=== PATIENT | male | born 1955 | race Caucasian/White ===

== ENCOUNTER → 2024-01-12 | Outpatient (CLI) | payer MEDICARE, MEDICAID, SELFPAY | END | disposition home or self-care (01) | LOC: SWHD 10:19 | PROVIDERS: PCP Family Medicine; Referring Provider Family Medicine; Visit Provider Student in an Organized Health Care Education/Training Program | DX: L97.322 Non-pressure chronic ulcer of left ankle with fat layer exposed (principal); E11.622 Type 2 diabetes mellitus with other skin ulcer; L85.3 Xerosis cutis; L60.5 Yellow nail syndrome; I10 Essential (primary) hypertension; E66.9 Obesity, unspecified; F15.11 Other stimulant abuse, in remission; I89.0 Lymphedema, not elsewhere classified | CPT/HCPCS: 11042; A9270 ==

== ENCOUNTER → 2024-01-19 | Outpatient (CLI) | payer MEDICARE, MEDICAID, SELFPAY | END | disposition home or self-care (01) | LOC: SWHD 09:02 | PROVIDERS: PCP Family Medicine; Referring Provider Family Medicine; Visit Provider Student in an Organized Health Care Education/Training Program | DX: I87.312 Chronic venous hypertension (idiopathic) with ulcer of left lower extremity (principal); L97.322 Non-pressure chronic ulcer of left ankle with fat layer exposed; L60.5 Yellow nail syndrome; I10 Essential (primary) hypertension; E66.9 Obesity, unspecified; F15.11 Other stimulant abuse, in remission; I89.0 Lymphedema, not elsewhere classified | CPT/HCPCS: 11042; A9270 ==

== ENCOUNTER → 2024-01-26 | Outpatient (CLI) | payer MEDICARE, MEDICAID, SELFPAY | END | disposition home or self-care (01) | LOC: SWHD 11:02 | PROVIDERS: PCP Family Medicine; Referring Provider Family Medicine; Visit Provider Student in an Organized Health Care Education/Training Program | DX: I87.312 Chronic venous hypertension (idiopathic) with ulcer of left lower extremity (principal); L97.322 Non-pressure chronic ulcer of left ankle with fat layer exposed; L60.5 Yellow nail syndrome; I10 Essential (primary) hypertension; E66.9 Obesity, unspecified; F15.11 Other stimulant abuse, in remission; I89.0 Lymphedema, not elsewhere classified | CPT/HCPCS: 11042; A9270 ==

== ENCOUNTER → 2024-02-02 | Outpatient (CLI) | payer MEDICARE, MEDICAID, SELFPAY | END | disposition home or self-care (01) | LOC: SWHD 08:10 | PROVIDERS: PCP Family Medicine; Referring Provider Family Medicine; Visit Provider Surgery | DX: I87.312 Chronic venous hypertension (idiopathic) with ulcer of left lower extremity (principal); L97.322 Non-pressure chronic ulcer of left ankle with fat layer exposed; L90.5 Scar conditions and fibrosis of skin; I10 Essential (primary) hypertension; L60.5 Yellow nail syndrome; E66.9 Obesity, unspecified; F15.11 Other stimulant abuse, in remission; I89.0 Lymphedema, not elsewhere classified | CPT/HCPCS: 11042; A9270 ==

== ENCOUNTER → 2024-02-09 | Outpatient (CLI) | payer MEDICARE, MEDICAID, SELFPAY | END | disposition home or self-care (01) | LOC: SWHD 09:32 | PROVIDERS: PCP Family Medicine; Referring Provider Family Medicine; Visit Provider Student in an Organized Health Care Education/Training Program | DX: I87.312 Chronic venous hypertension (idiopathic) with ulcer of left lower extremity (principal); L97.322 Non-pressure chronic ulcer of left ankle with fat layer exposed; L90.5 Scar conditions and fibrosis of skin; L60.5 Yellow nail syndrome; E66.9 Obesity, unspecified; F15.11 Other stimulant abuse, in remission; I89.0 Lymphedema, not elsewhere classified | CPT/HCPCS: 11042; A9270 ==

== ENCOUNTER → 2024-02-16 | Outpatient (CLI) | payer MEDICARE, MEDICAID, SELFPAY | END | disposition home or self-care (01) | LOC: SWHD 09:30 | PROVIDERS: PCP Family Medicine; Referring Provider Family Medicine; Visit Provider Student in an Organized Health Care Education/Training Program | DX: I87.312 Chronic venous hypertension (idiopathic) with ulcer of left lower extremity (principal); L97.322 Non-pressure chronic ulcer of left ankle with fat layer exposed; L90.5 Scar conditions and fibrosis of skin; I10 Essential (primary) hypertension; L60.5 Yellow nail syndrome; E66.9 Obesity, unspecified; F15.11 Other stimulant abuse, in remission; I89.0 Lymphedema, not elsewhere classified | CPT/HCPCS: 11042; A9270 ==

== ENCOUNTER → 2024-02-23 | Outpatient (CLI) | payer MEDICARE, MEDICAID, SELFPAY | END | disposition home or self-care (01) | LOC: SWHD 09:15 | PROVIDERS: PCP Family Medicine; Referring Provider Family Medicine; Visit Provider Student in an Organized Health Care Education/Training Program | DX: I87.312 Chronic venous hypertension (idiopathic) with ulcer of left lower extremity (principal); L97.322 Non-pressure chronic ulcer of left ankle with fat layer exposed; L90.5 Scar conditions and fibrosis of skin; I10 Essential (primary) hypertension; L60.5 Yellow nail syndrome; E66.9 Obesity, unspecified; F15.11 Other stimulant abuse, in remission; I89.0 Lymphedema, not elsewhere classified | CPT/HCPCS: 11042; A9270 ==

== ENCOUNTER → 2024-03-01 | Outpatient (CLI) | payer MEDICARE, MEDICAID, SELFPAY | END | disposition home or self-care (01) | LOC: SWHD 13:25 | PROVIDERS: PCP Family Medicine; Referring Provider Family Medicine; Visit Provider Student in an Organized Health Care Education/Training Program | DX: I87.312 Chronic venous hypertension (idiopathic) with ulcer of left lower extremity (principal); L97.322 Non-pressure chronic ulcer of left ankle with fat layer exposed; L90.5 Scar conditions and fibrosis of skin; I10 Essential (primary) hypertension; L60.5 Yellow nail syndrome; E66.9 Obesity, unspecified; F15.11 Other stimulant abuse, in remission; I89.0 Lymphedema, not elsewhere classified | CPT/HCPCS: 29580 ==

== ENCOUNTER → 2024-03-08 | Outpatient (CLI) | payer MEDICARE, MEDICAID, SELFPAY | END | disposition home or self-care (01) | LOC: SWHD 10:13 | PROVIDERS: PCP Family Medicine; Referring Provider Family Medicine; Visit Provider Surgery | DX: I87.312 Chronic venous hypertension (idiopathic) with ulcer of left lower extremity (principal); L97.322 Non-pressure chronic ulcer of left ankle with fat layer exposed; L90.5 Scar conditions and fibrosis of skin; I10 Essential (primary) hypertension; L60.5 Yellow nail syndrome; E66.9 Obesity, unspecified; F15.11 Other stimulant abuse, in remission; I89.0 Lymphedema, not elsewhere classified | CPT/HCPCS: 11042; A9270 ==

== ENCOUNTER → 2024-03-15 | Outpatient (CLI) | payer MEDICARE, MEDICAID, SELFPAY | END | disposition home or self-care (01) | LOC: SWHD 10:06 | PROVIDERS: PCP Family Medicine; Referring Provider Family Medicine; Visit Provider Student in an Organized Health Care Education/Training Program | DX: I87.312 Chronic venous hypertension (idiopathic) with ulcer of left lower extremity (principal); L97.322 Non-pressure chronic ulcer of left ankle with fat layer exposed; L90.5 Scar conditions and fibrosis of skin; I10 Essential (primary) hypertension; L60.5 Yellow nail syndrome; E66.9 Obesity, unspecified; F15.11 Other stimulant abuse, in remission; I89.0 Lymphedema, not elsewhere classified | CPT/HCPCS: 11042; A9270 ==

== ENCOUNTER → 2024-03-22 | Outpatient (CLI) | payer MEDICARE, MEDICAID, SELFPAY | END | disposition home or self-care (01) | LOC: SWHD 10:10 | PROVIDERS: PCP Family Medicine; Referring Provider Family Medicine; Visit Provider Student in an Organized Health Care Education/Training Program | DX: L97.322 Non-pressure chronic ulcer of left ankle with fat layer exposed (principal); L90.5 Scar conditions and fibrosis of skin; I10 Essential (primary) hypertension; L60.5 Yellow nail syndrome; E66.9 Obesity, unspecified; F15.11 Other stimulant abuse, in remission; I89.0 Lymphedema, not elsewhere classified | CPT/HCPCS: 11042; A9270 ==

== ENCOUNTER → 2024-03-29 | Outpatient (CLI) | payer MEDICARE, MEDICAID, SELFPAY | END | disposition home or self-care (01) | LOC: SWHD 14:15 | PROVIDERS: PCP Family Medicine; Referring Provider Family Medicine; Visit Provider Student in an Organized Health Care Education/Training Program | DX: L97.322 Non-pressure chronic ulcer of left ankle with fat layer exposed (principal); L90.5 Scar conditions and fibrosis of skin; I10 Essential (primary) hypertension; L60.5 Yellow nail syndrome; E66.9 Obesity, unspecified; F15.11 Other stimulant abuse, in remission; I89.0 Lymphedema, not elsewhere classified | CPT/HCPCS: 11042; A9270 ==

== ENCOUNTER → 2024-04-05 | Outpatient (CLI) | payer MEDICARE, MEDICAID, SELFPAY | END | disposition home or self-care (01) | LOC: SWHD 10:16 | PROVIDERS: PCP Family Medicine; Referring Provider Family Medicine; Visit Provider Student in an Organized Health Care Education/Training Program | DX: I87.312 Chronic venous hypertension (idiopathic) with ulcer of left lower extremity (principal); L97.322 Non-pressure chronic ulcer of left ankle with fat layer exposed; I10 Essential (primary) hypertension; L60.5 Yellow nail syndrome; E66.9 Obesity, unspecified; F15.11 Other stimulant abuse, in remission; I89.0 Lymphedema, not elsewhere classified | CPT/HCPCS: 11042; A9270 ==

== ENCOUNTER → 2024-04-12 | Outpatient (CLI) | payer MEDICARE, MEDICAID, SELFPAY | END | disposition home or self-care (01) | LOC: SWHD 08:39 | PROVIDERS: PCP Family Medicine; Referring Provider Family Medicine; Visit Provider Student in an Organized Health Care Education/Training Program | DX: I87.312 Chronic venous hypertension (idiopathic) with ulcer of left lower extremity (principal); L97.322 Non-pressure chronic ulcer of left ankle with fat layer exposed; I10 Essential (primary) hypertension; L60.5 Yellow nail syndrome; E66.9 Obesity, unspecified; F15.11 Other stimulant abuse, in remission; I89.0 Lymphedema, not elsewhere classified | CPT/HCPCS: 11042; A9270 ==

== ENCOUNTER → 2024-04-19 | Outpatient (CLI) | payer MEDICARE, MEDICAID, SELFPAY | END | disposition home or self-care (01) | PROVIDERS: PCP Family Medicine; Referring Provider Family Medicine; Visit Provider Surgery | DX: I87.312 Chronic venous hypertension (idiopathic) with ulcer of left lower extremity (principal); L97.322 Non-pressure chronic ulcer of left ankle with fat layer exposed; I10 Essential (primary) hypertension; L60.5 Yellow nail syndrome; E66.9 Obesity, unspecified | CPT/HCPCS: 11042; A9270 ==

== ENCOUNTER → 2024-04-26 | Outpatient (CLI) | payer MEDICARE, MEDICAID, SELFPAY | END | disposition home or self-care (01) | LOC: SWHD 10:21 | PROVIDERS: PCP Family Medicine; Referring Provider Family Medicine; Visit Provider Student in an Organized Health Care Education/Training Program | DX: I87.312 Chronic venous hypertension (idiopathic) with ulcer of left lower extremity (principal); L97.322 Non-pressure chronic ulcer of left ankle with fat layer exposed; I10 Essential (primary) hypertension; L60.5 Yellow nail syndrome; E66.9 Obesity, unspecified | CPT/HCPCS: 11042; A9270 ==

== ENCOUNTER → 2024-05-03 | Outpatient (CLI) | payer MEDICARE, MEDICAID, SELFPAY | END | disposition home or self-care (01) | PROVIDERS: PCP Family Medicine; Referring Provider Family Medicine; Visit Provider Surgery | DX: I87.312 Chronic venous hypertension (idiopathic) with ulcer of left lower extremity (principal); L97.322 Non-pressure chronic ulcer of left ankle with fat layer exposed; I10 Essential (primary) hypertension; L60.5 Yellow nail syndrome; E66.9 Obesity, unspecified | CPT/HCPCS: 11042; A9270 ==

== ENCOUNTER → 2024-05-10 | Outpatient (CLI) | payer MEDICARE, MEDICAID, SELFPAY | END | disposition home or self-care (01) | LOC: SWHD 09:26 | PROVIDERS: PCP Family Medicine; Referring Provider Family Medicine; Visit Provider Student in an Organized Health Care Education/Training Program | DX: I87.312 Chronic venous hypertension (idiopathic) with ulcer of left lower extremity (principal); L97.322 Non-pressure chronic ulcer of left ankle with fat layer exposed; I10 Essential (primary) hypertension; E66.9 Obesity, unspecified; L90.5 Scar conditions and fibrosis of skin; L85.3 Xerosis cutis; E11.69 Type 2 diabetes mellitus with other specified complication; M54.9 Dorsalgia, unspecified | CPT/HCPCS: 11042; A9270 ==

== ENCOUNTER → 2024-05-17 | Outpatient (CLI) | payer MEDICARE, MEDICAID, SELFPAY | END | disposition home or self-care (01) | LOC: SWHD 10:23 | PROVIDERS: PCP Family Medicine; Referring Provider Family Medicine; Visit Provider Student in an Organized Health Care Education/Training Program | DX: I87.312 Chronic venous hypertension (idiopathic) with ulcer of left lower extremity (principal); L97.322 Non-pressure chronic ulcer of left ankle with fat layer exposed; I10 Essential (primary) hypertension; E66.9 Obesity, unspecified; L90.5 Scar conditions and fibrosis of skin; L85.3 Xerosis cutis; E11.69 Type 2 diabetes mellitus with other specified complication; M54.9 Dorsalgia, unspecified | CPT/HCPCS: 11042; A9270 ==

== ENCOUNTER → 2024-05-24 | Outpatient (CLI) | payer MEDICARE, MEDICAID, SELFPAY | END | disposition home or self-care (01) | LOC: SWHD 12:53 | PROVIDERS: PCP Family Medicine; Referring Provider Family Medicine; Visit Provider Student in an Organized Health Care Education/Training Program | DX: I87.312 Chronic venous hypertension (idiopathic) with ulcer of left lower extremity (principal); L97.322 Non-pressure chronic ulcer of left ankle with fat layer exposed; I10 Essential (primary) hypertension; E66.9 Obesity, unspecified; L90.5 Scar conditions and fibrosis of skin; L85.3 Xerosis cutis; E11.69 Type 2 diabetes mellitus with other specified complication; M54.9 Dorsalgia, unspecified | CPT/HCPCS: 11042; A9270 ==

== ENCOUNTER → 2024-05-31 | Outpatient (CLI) | payer MEDICARE, MEDICAID, SELFPAY | END | disposition home or self-care (01) | LOC: SWHD 12:43 | PROVIDERS: PCP Family Medicine; Referring Provider Family Medicine; Visit Provider Student in an Organized Health Care Education/Training Program | DX: I87.312 Chronic venous hypertension (idiopathic) with ulcer of left lower extremity (principal); L97.322 Non-pressure chronic ulcer of left ankle with fat layer exposed; I10 Essential (primary) hypertension; E66.9 Obesity, unspecified; L90.5 Scar conditions and fibrosis of skin; L85.3 Xerosis cutis; E11.69 Type 2 diabetes mellitus with other specified complication; M54.9 Dorsalgia, unspecified | CPT/HCPCS: 11042; A9270 ==

== ENCOUNTER → 2024-06-07 | Outpatient (CLI) | payer MEDICARE, MEDICAID, SELFPAY | END | disposition home or self-care (01) | LOC: SWHD 10:05 | PROVIDERS: PCP Family Medicine; Referring Provider Family Medicine; Visit Provider Student in an Organized Health Care Education/Training Program | DX: I87.312 Chronic venous hypertension (idiopathic) with ulcer of left lower extremity (principal); L97.322 Non-pressure chronic ulcer of left ankle with fat layer exposed; I10 Essential (primary) hypertension; E66.9 Obesity, unspecified; L90.5 Scar conditions and fibrosis of skin; L85.3 Xerosis cutis; E11.69 Type 2 diabetes mellitus with other specified complication; M54.9 Dorsalgia, unspecified | CPT/HCPCS: 11042; A9270 ==

== ENCOUNTER → 2024-06-21 | Outpatient (CLI) | payer MEDICARE, MEDICAID, SELFPAY | END | disposition home or self-care (01) | LOC: SWHD 09:18 | PROVIDERS: PCP Family Medicine; Referring Provider Family Medicine; Visit Provider Student in an Organized Health Care Education/Training Program | DX: I87.312 Chronic venous hypertension (idiopathic) with ulcer of left lower extremity (principal); L97.322 Non-pressure chronic ulcer of left ankle with fat layer exposed; I10 Essential (primary) hypertension; E66.9 Obesity, unspecified; L90.5 Scar conditions and fibrosis of skin; L85.3 Xerosis cutis; E11.69 Type 2 diabetes mellitus with other specified complication; M54.9 Dorsalgia, unspecified | CPT/HCPCS: 11042; A9270 ==

== ENCOUNTER → 2024-06-28 | Outpatient (CLI) | payer MEDICARE, MEDICAID, SELFPAY | END | disposition home or self-care (01) | LOC: SWHD 10:02 | PROVIDERS: PCP Family Medicine; Referring Provider Family Medicine; Visit Provider Surgery | DX: I87.312 Chronic venous hypertension (idiopathic) with ulcer of left lower extremity (principal); L97.322 Non-pressure chronic ulcer of left ankle with fat layer exposed; L97.529 Non-pressure chronic ulcer of other part of left foot with unspecified severity; I10 Essential (primary) hypertension; E66.9 Obesity, unspecified; L90.5 Scar conditions and fibrosis of skin; L85.3 Xerosis cutis; E11.69 Type 2 diabetes mellitus with other specified complication; M54.9 Dorsalgia, unspecified | CPT/HCPCS: 11042; 97597; A9270 ==

== ENCOUNTER → 2024-07-05 | Outpatient (CLI) | payer MEDICARE, MEDICAID, SELFPAY | END | disposition home or self-care (01) | LOC: SWHD 10:17 | PROVIDERS: PCP Family Medicine; Referring Provider Family Medicine; Visit Provider Student in an Organized Health Care Education/Training Program | DX: I87.312 Chronic venous hypertension (idiopathic) with ulcer of left lower extremity (principal); L97.322 Non-pressure chronic ulcer of left ankle with fat layer exposed; L97.529 Non-pressure chronic ulcer of other part of left foot with unspecified severity; I10 Essential (primary) hypertension; E66.9 Obesity, unspecified; L90.5 Scar conditions and fibrosis of skin; L85.3 Xerosis cutis; E11.69 Type 2 diabetes mellitus with other specified complication; M54.9 Dorsalgia, unspecified | CPT/HCPCS: 97597; 11042; A9270 ==

== ENCOUNTER → 2024-07-12 | Outpatient (CLI) | payer MEDICARE, MEDICAID, SELFPAY | END | disposition home or self-care (01) | LOC: SWHD 10:37 | PROVIDERS: PCP Family Medicine; Referring Provider Family Medicine; Visit Provider Student in an Organized Health Care Education/Training Program | DX: I87.312 Chronic venous hypertension (idiopathic) with ulcer of left lower extremity (principal); L97.322 Non-pressure chronic ulcer of left ankle with fat layer exposed; L97.522 Non-pressure chronic ulcer of other part of left foot with fat layer exposed; I10 Essential (primary) hypertension; L90.5 Scar conditions and fibrosis of skin; L85.3 Xerosis cutis; E11.69 Type 2 diabetes mellitus with other specified complication; M54.9 Dorsalgia, unspecified; E66.9 Obesity, unspecified | CPT/HCPCS: 11042; 17250; A9270 ==

== ENCOUNTER → 2024-07-19 | Outpatient (CLI) | payer MEDICARE, MEDICAID, SELFPAY | END | disposition home or self-care (01) | LOC: SWHD 08:07 | PROVIDERS: PCP Family Medicine; Referring Provider Family Medicine; Visit Provider Student in an Organized Health Care Education/Training Program | DX: I87.312 Chronic venous hypertension (idiopathic) with ulcer of left lower extremity (principal); L97.322 Non-pressure chronic ulcer of left ankle with fat layer exposed; L97.522 Non-pressure chronic ulcer of other part of left foot with fat layer exposed; I10 Essential (primary) hypertension; L90.5 Scar conditions and fibrosis of skin; L85.3 Xerosis cutis; E11.69 Type 2 diabetes mellitus with other specified complication; M54.9 Dorsalgia, unspecified; E66.9 Obesity, unspecified | CPT/HCPCS: 17250; A9270 ==

== ENCOUNTER 2024-07-26 11:06 | Emergency (ER) | payer MEDICARE, MEDICAID, SELFPAY ==
[2024-07-26 11:10] VITALS: BP 149/78; PULSE 71; RESP 19; TEMP 36.8; O2SAT 95
[2024-07-26 11:25] VITALS: PULSE 88; RESP 20; BMI 46.7
--- NOTE | 2024-07-26 11:51 | EKG_ITS ---
[facility] Test Date: 2024-07-26 Pat Name: VIPUL REAL Department: Room: - Gender: Male Information Systems Auditor: : 1955 Requested By: Jensen Carvajal Order Number: [id number] Reading MD: Jensen Carvajal Measurements Intervals [place] Rate: 77 P: [place]: QRS: -80 QRSD: 164 T: 77 QT: 452 QTc: 513 Interpretive Statements ELECTRONIC VENTRICULAR PACEMAKER ABNORMAL RHYTHM ECG Compared to ECG 05/22/2022 09:18:56 Atrial fibrillation no longer present Left-axis deviation no longer present /store/S0/[id number]
--- NOTE | 2024-07-26 11:52 | PD.EDWEAK ---
ED Weakness RME/HPI General Chief complaint: Weakness Stated complaint: HYPOGLYCEMIA Time Seen by Provider: 07/26/24 11:08 Source: patient and EMS Arrival date/time: 07/26/24 11:06 69-year-old male with a history of type 2 diabetes, hyperlipidemia, morbid obesity, presents to the emergency room with a chief complaint of hypoglycemia. Patient went to see his primary care provider for general checkup and states that during his visit he was told his blood sugar was 51 and was brought to the emergency room by ambulance. Mode of arrival: EMS Limitations: no limitations Related Data Home Medications ?Medication ?Instructions ?Recorded ?Confirmed pioglitazone 45 mg tablet (Actos) 45 mg PO DAILY ##0 09/26/09 05/27/22 dexlansoprazole 30 mg 30 mg PO QDAY ##0 10/19/13 05/27/22 capsule,biphase delayed release (Dexilant) alprazolam 1 mg tablet 1 mg PO TID 05/27/22 05/27/22 buspirone 10 mg tablet 10 mg PO TID 05/27/22 05/27/22 flecainide 100 mg tablet 100 mg PO BID 05/27/22 05/27/22 insulin degludec 100 unit/mL See Rx Instructions .Route 05/27/22 05/27/22 subcutaneous solution (Tresiba .COMPLEX PRN Hyperglycemia U-100 Insulin) lovastatin 40 mg tablet 40 mg PO QDAY 05/27/22 05/27/22 metformin 1,000 mg tablet 1,000 mg PO BID 05/27/22 05/27/22 metoprolol succinate 50 mg 50 mg PO BID 05/27/22 05/27/22 tablet,extended release 24 hr triamterene 37.5 1 tab PO BID 05/27/22 05/27/22 mg-hydrochlorothiazide 25 mg tablet warfarin 5 mg tablet 5 mg PO QDAY 05/27/22 05/27/22 Held on 05/27/22. Instructions: Resume on 05/28/22. Previous Rx's ?Medication ?Instructions ?Recorded cephalexin 500 mg tablet 500 mg PO Q6HR #12 tabs 05/27/22 Allergies Allergy/AdvReac Type Severity Reaction Status Date / Time No Known Allergies Allergy Verified 05/27/22 14:54 Review of Systems Review of Systems Systems Reviewed: All systems reviewed, normal except as documented Constitutional Constitutional: Reports system reviewed and no additional complaints, except as documented, Denies fatigue, Denies fever(s), Denies headache(s) and Reports weakness Eyes Eyes: Reports system reviewed and no additional complaints, except as documented, Denies blurry vision and Denies change in vision ENT Ears, Nose, Mouth, and Throat: Reports system reviewed and no additional complaints, except as documented, Denies otalgia, Denies headache(s), Denies nasal congestion, Denies throat swelling and Denies vertigo Cardiovascular Cardiovascular: Reports system reviewed and no additional complaints, except as documented, Denies chest pain, Denies dyspnea and Denies dyspnea on exertion Respiratory Respiratory: Reports system reviewed and no additional complaints, except as documented, Denies chest congestion, Denies cough, Denies dyspnea, Denies dyspnea on exertion and Denies wheezing Gastrointestinal Gastrointestinal: Reports system reviewed and no additional complaints, except as documented, Denies abdominal pain, Denies cramping, Denies nausea and Denies vomiting Genitourinary Genitourinary: Reports system reviewed and no additional complaints, except as documented, Denies dysuria and Denies hematuria Musculoskeletal Musculoskeletal: Reports system reviewed and no additional complaints, except as documented and Denies back pain Integumentary/Breasts Skin/Breast: Reports system reviewed and no additional complaints, except as documented and Denies wounds Neurologic Neurologic: Reports system reviewed and no additional complaints, except as documented, Denies confusion, Denies headache(s), Denies lack of coordination, Denies vertigo and Reports weakness Psychiatric Psychiatric: Reports system reviewed and no additional complaints, except as documented, Denies anxiety, Denies confusion, Denies depression, Denies paranoia, Denies suicidal ideation and Denies tactile hallucinations Endocrine Endocrine: Reports system reviewed and no additional complaints, except as documented and Denies fatigue Hematologic/Lymphatic Hematologic/Lymphatic: Reports system reviewed and no additional complaints, except as documented and Denies lymphadenopathy Allergic/Immunologic Allergic/Immunologic: Reports system reviewed and no additional complaints, except as documented, Denies throat swelling, Denies urticaria and Denies wheezing Past Medical History Past Medical History NEUROLOGIC: Negative Neurological Disorders CARDIAC: Positive Cardiac Disorders, Cardiac Arrhythmia, Atrial Fibrillation, Hypercholesterolemia, Congestive Heart Failure, Cellulitis (LEFT ANKLE ULCER) and Hypertension RESPIRATORY: Negative Chronic Obstructive Pulmonary Disease (COPD) GASTROINTESTINAL: Positive Gall Bladder Disease GENITOURINARY: Negative Renal Disease MUSCULOSKELETAL: Positive Arthritis ENDOCRINE: Positive Diabetes Mellitus Type 2; Negative Diabetes Mellitus Type 1 HEMATOLOGIC: Negative Blood Disorders PSYCHO/SOCIAL: Positive Anxiety OTHER HISTORY: Positive Chicken Pox Family History FAMILY HISTORY: Positive Family Cardiac Disorders (MOTHER) and Family Cancer (FATHER LUNG CA) Surgical History SURGICAL: Positive Pacemaker Social History SMOKING STATUS: Never smoker ED Exam General Limitations: Present no limitations General appearance: Present alert and in no apparent distress Head Head exam: Present atraumatic, normocephalic and normal inspection Eye Eye exam: Present normal appearance, PERRL and EOMI ENT ENT exam: Present normal exam, normal oropharynx and mucous membranes moist Neck Neck exam: Present normal inspection, full ROM and trachea midline Chest Chest inspection: Present normal inspection and symmetric chest wall rise Respiratory Respiratory exam: Present normal lung sounds bilaterally Cardiovascular Cardiovascular exam: Present regular rate, normal rhythm and normal heart sounds Abdominal Exam Abdominal exam: Present soft and normal bowel sounds; Absent distention, tenderness or guarding Extremities Exam Extremities exam: Present normal inspection and full ROM Back Exam Back exam: Present normal inspection and full ROM Neurological Exam Neurological exam: Present alert, oriented X3 and CN II-XII intact Psychiatric Psychiatric exam: Present normal affect and normal mood Skin Skin exam: Present warm, dry, intact and normal color Course Quality Measures none Orders Category Date Time Status EKG (ED ONLY) *Do not use* NOW Care 07/26/24 11:51 Completed In and Out Catheter X1 Care 07/26/24 13:54 Completed Occult Blood,Stool (Nursing) NEEDED Care 07/26/24 15:30 Completed EKG (ED Only) Stat Exams 07/26/24 11:51 Draft B-Type Natriuretic Peptide Stat Lab 07/26/24 12:07 Completed CBC Stat Lab 07/26/24 12:07 Completed Comprehensive Metabolic Panel Stat Lab 07/26/24 12:07 Completed Magnesium Stat Lab 07/26/24 12:07 Completed Partial Thromboplastin Time Stat Lab 07/26/24 12:07 Completed Prothrombin Time with INR Stat Lab 07/26/24 12:07 Completed Troponin I Stat Lab 07/26/24 12:07 Completed Urinalysis Stat Lab 07/26/24 13:51 Completed Vital Signs Vital signs: Vital Signs Temperature 98.2 F 07/26/24 11:10 Pulse Rate 71 07/26/24 11:10 Respiratory Rate 19 07/26/24 11:10 Blood Pressure 149/78 H 07/26/24 11:10 Pulse Oximetry (%) 95 07/26/24 11:10 Oxygen Delivery Method Room Air 07/26/24 11:10 O2 saturation 95% within normal limits Weakness MDM Narrative MDM Narrative:: 69-year-old male with a history of type 2 diabetes, hyperlipidemia, morbid obesity, presents to the emergency room with a chief complaint of hypoglycemia. Patient went to see his primary care provider for general checkup and states that during his visit he was told his blood sugar was 51 and was brought to the emergency room by ambulance. Patient is hemodynamically stable and in no apparent distress Physical examination shows a normal neurological examination. The patient has a soft nontender abdomen clear bilateral lung sounds and states his only complaint was due to a hypoglycemic episode that occurred at his primary care provider's office. Patient states he went in there for routine visit and found that his sugar was low at 51. EMS gave him some glucagon and D10 when the patient arrived to the emergency room sugar was within normal limits. The patient presented immediately complains of patient has no chest pain no palpitations no other complaints. CBC CMP are within normal limits. Patient has an elevated BNP. Patient has a history of congestive heart failure. Patient's hemoglobin was 7.6. No blood tests was completed and there is negative rectal bleeding. Patient was discharged and educated to follow-up with primary care provider in the next 24 to 48 hours and return to the emergency room for any evidence of worsening signs or symptoms Patient data External records reviewed:: [facility] previous records Clinical information provided by:: patient Social determinants that could affect healthcare access:: none Patient has the following chronic illnesses:: Type 2 diabetes, hypertension, hyperlipidemia How is presenting disease/condition affected by chronic disease/condition?: exacerbated by Evaluation data The following diagnostics were reviewed and interpreted by me:: lab results and radiology exam(s) Lab and/or radiology exams considered but not ordered:: Labs and radiology exams considered and ordered Interpretation Summary: N/A Medications / Prescriptions Medications or Prescriptions considered but not ordered:: Medication given Medication administrations:: Medication given Consultations Consultation(s) initiated? (list below): No Diagnosis Weakness Differential Diagnosis: acute myocardial infarction, anemia, hypoglycemia, hypothyroidism, rhabdomyolysis, sepsis and dehydration Most likely diagnosis given after review of the tests above:: Anemia Admission Indicated Admission indicated?: not indicated Admission Request Was there a request for admission?: No Disposition Plan Disposition Plan: Discharge Discharge Attestation Discharge Attestation: The patient and all family members were given an opportunity to ask questions and understood the discharge instructions. Discharge instructions specifically effects, indications for sooner follow up or return to the emergency department, and the expected course of current diagnosis. Patient condition: Stable Discharge Plan Plan Patient Disposition: HOME (Self Care) Discharge Disposition comment: stable Prescriptions/Referrals Prescriptions/Med Rec: No Action pioglitazone [Actos] 45 MG tablet 45 mg PO DAILY Qty: 0 dexlansoprazole [Dexilant] 30 MG capsule,biphase delayed releas 30 mg PO QDAY Qty: 0 warfarin 5 mg Tablet 5 mg PO QDAY flecainide 100 mg Tablet 100 mg PO BID triamterene-hydrochlorothiazid 37.5-25 mg Tablet 1 tab PO BID insulin degludec [Tresiba U-100 Insulin] 100 unit/mL Solution See Rx Instructions .ROUTE .COMPLEX PRN (Reason: Hyperglycemia) Rx Instructions: use as directed alprazolam 1 mg Tablet 1 mg PO TID metoprolol succinate 50 mg Tablet Extended Release 24 Hr 50 mg PO BID metformin 1,000 mg Tablet 1,000 mg PO BID cephalexin 500 mg Tablet 500 mg PO Q6HR Qty: 12 0RF lovastatin 40 mg Tablet 40 mg PO QDAY buspirone 10 mg Tablet 10 mg PO TID Referrals: Dre Harris MD [Primary Care Provider] - In 1 week Problem List Clinical Impression: Hypoglycemia, Anemia Patient/Caregiver Discharge Instructions Education Materials: Anemia, Hypoglycemia (Low Blood Sugar) Additional Instructions: Please follow-up with your primary care provider in the next 24 to 48 hours. For any evidence of worsening signs or symptoms return to the emergency room immediately Print Language: Guamanian Stand Alone Forms: Keren Award Info., Patient Portal Info Letter PA/CALL MANAGER Supervising Physician PA/BREANNA Supervising Physician: Dr Lugo
[2024-07-26 12:22] LABS: Basophils # (Auto) 0.1 Thou/mm3 (0.0-0.2); Basophils % (Auto) 1 % (0-2.5); Eosinophils # (Auto) 0.1 Thou/mm3 (0.0-0.5); Eosinophils % (Auto) 1 % (0-10); Hematocrit 26.2 % (41.0-53.0); Immature Granulocytes % (Auto) 0 % (0-0); Immature Granulocytes Auto 0.01 Thou/mm3 (0.00-0.00); Lymphocytes # (Auto) 0.7 Thou/mm3 (1.0-4.8); Lymphocytes % (Auto) 13 % (10-50); Mean Corpuscular Hemoglobin 22.8 pg (25.0-35.0); Mean Corpuscular Volume 79 fL (80-100); Monocytes # (Auto) 0.5 Thou/mm3 (0.0-0.8); Monocytes % (Auto) 9 % (0-12); Neutrophils % (Auto) 76 % (37-80); Nucleated Red Blood Cell % 0 /100 WBC (0); Platelet Count 265 Thou/mm3 (140-440); RDW Standard Deviation 55.5 fL (35.1-43.9); Red Blood Count 3.33 Miln/mm3 (4.50-5.90); White Blood Count 5.3 Thou/mm3 (3.8-10.6)
[2024-07-26 12:45] LABS: Alanine Aminotransferase 11 U/L (10-49); Albumin/Globulin Ratio 1.8 (1.2-2.2); Alkaline Phosphatase 68 U/L (46-116); Anion Gap 13 (7-16); Aspartate Amino Transferase 19 U/L (0-34); BUN/Creatinine Ratio 27 Ratio (12-20); Bilirubin,Total 0.3 mg/dL (0.3-1.2); Blood Urea Nitrogen 35 mg/dL (9-23); Calcium 8.2 mg/dL (8.3-10.6); Calcium (Corrected) 8.2 mg/dL (8.5-10.1); Carbon Dioxide 23.8 mMol/L (20.0-31.0); Chloride 108 mMol/L (98-107); Creatinine (Component) 1.3 mg/dL (0.6-1.3); Estimated Creatinine Clearance 99.8 mL/min (>60); Globulin 2.2 gm/dL (2.3-3.5); Glucose 98 mg/dL (74-106); Magnesium 1.8 mg/dL (1.6-2.6); Osmolality,Calculated 296 (275-295); Potassium 4.8 mMol/L (3.4-5.1); Sodium 145 mMol/L (136-145); Total Protein 6.2 gm/dL (5.7-8.2); Troponin I < 0.020 ng/mL (0.0-0.045); eGFR 59 See Note
[2024-07-26 12:46] LABS: INR 2.5 (0.9-1.3); Partial Thromboplastin Time 32.7 Seconds (22.0-36.0); Prothrombin Time 25.6 Seconds (9.0-12.2)
[2024-07-26 12:50] LABS: B-Type Natriuretic Peptide 551 pg/mL (0-100)
[2024-07-26 12:51] LABS: Hemoglobin 7.6 g/dL (13.5-16.0)
[2024-07-26 13:02] VITALS: BP 137/83; PULSE 79; RESP 19; TEMP 36.6; O2SAT 97
[2024-07-26 13:54] LABS: Collection Type, Urine Clean Catch
[2024-07-26 13:59] LABS: Bilirubin,Urine Negative (Negative); Blood,Urine 3+ (Negative); Clarity,Urine Clear (Clear/Hazy); Color,Urine Lt-Yellow (Lt Yel-Yel); Glucose, Urine Negative (Negative); Hyaline Casts,Urine < 1 /hpf (0-1); Ketones,Urine Negative (Negative); Leukocyte Esterase,Urine Negative (Negative); Nitrite,Urine Negative (Negative); PH,Urine 5.5 (5.0-7.0); Protein,Urine Trace (Neg - Trace); RBC,Urine 132 /hpf (0-3); Specific Gravity,Urine 1.019 (1.001-1.035); Squamous Epithelial Cell,Urine 1 /hpf (0-5); Urobilinogen,Urine Negative mg/dL (0.0-1.0); WBC,Urine 6 /hpf (0-5)
[2024-07-26 14:31] VITALS: BP 148/92; PULSE 71; RESP 20; TEMP 36.9; O2SAT 96
[2024-07-26 15:53] VITALS: BP 138/88; PULSE 75; RESP 19; TEMP 36.9; O2SAT 97
[2024-07-26 16:29] VITALS: BP 149/88; PULSE 78; RESP 19; O2SAT 96
== END 2024-07-26 16:31 | disposition home or self-care (01) ==
PROVIDERS: Nurse Practitioner Family; Emergency Provider Emergency Medicine; PCP Family Medicine
DX: D64.9 Anemia, unspecified (principal); E11.649 Type 2 diabetes mellitus with hypoglycemia without coma; R94.31 Abnormal electrocardiogram [ECG] [EKG]; I48.91 Unspecified atrial fibrillation; I11.0 Hypertensive heart disease with heart failure; I50.9 Heart failure, unspecified; E78.00 Pure hypercholesterolemia, unspecified; Z95.0 Presence of cardiac pacemaker; Z79.84 Long term (current) use of oral hypoglycemic drugs; Z79.4 Long term (current) use of insulin; Z79.01 Long term (current) use of anticoagulants
CPT/HCPCS: 51701; 36415; 80053; 81001; 83735; 83880; 84484; 85025; 85610; 85730; 93005; 99283

== ENCOUNTER 2024-07-31 08:40 | Inpatient (IN) | payer MEDICARE, MEDICAID, SELFPAY ==
[2024-07-31] VITALS (11 sets, daily range): BP systolic 123–179; BP diastolic 68–90; PULSE 68–91; RESP 16–93; TEMP 36.4–36.9; O2SAT 91–98; BMI 28.1; BMI 46.0
--- NOTE | 2024-07-31 09:42 | EKG_ITS ---
[facility] Test Date: 2024-07-31 Pat Name: VIPUL REAL Department: Room: - Gender: Male Underwriting Specialist: : 1955 Requested By: Eliazar Jefferson Order Number: [id number] Reading MD: Eliazar Jefferson Measurements Intervals [place] Rate: 70 P: [place]: QRS: -84 QRSD: 225 T: 82 QT: 508 QTc: 550 Interpretive Statements ELECTRONIC VENTRICULAR PACEMAKER ABNORMAL RHYTHM ECG Compared to ECG 07/26/2024 11:58:00 No significant changes /store/S0/[id number]/[id number]
--- NOTE | 2024-07-31 09:42 | XR_ITS ---
Examination: AP chest single view Technique one AP portable semiupright chest single view Date and time: July 31, 2024 0957 hrs. Comparison May 27, 2022 Indications: Coughing shortness of breath 3 days. Findings: Mild to moderate CHF Moderate enlargement cardiac contour. Prominent vascular congestion with perihilar basilar edema Consider superimposed pneumonia left base Cardiac leads stable position Possible pneumonia left base Impression: Mild to moderate CHF Suspicious for superimposed pneumonia left base
[2024-07-31 10:14] LABS: Collection Type, Urine Clean Catch; Squamous Epithelial Cell,Urine 0 /hpf (0-5)
[2024-07-31] MEDS: SODIUM CHLORIDE 0.9% 1000 ML 1,000 ML 100 ML IV (10:18)
[2024-07-31 10:26] LABS: Bacteria,Urine Rare; Bilirubin,Urine Negative (Negative); Blood,Urine 2+ (Negative); Clarity,Urine Turbid (Clear/Hazy); Color,Urine Lt-Yellow (Lt Yel-Yel); Glucose, Urine Negative (Negative); Hyaline Casts,Urine < 1 /hpf (0-1); Ketones,Urine Negative (Negative); Leukocyte Esterase,Urine Positive (Negative); Nitrite,Urine Positive (Negative); Protein,Urine 1+ (Neg - Trace); RBC,Urine 87 /hpf (0-3); Specific Gravity,Urine 1.015 (1.001-1.035); Triple Phosphate Crystal,Urine 1+; Urobilinogen,Urine Negative mg/dL (0.0-1.0); WBC,Urine 116 /hpf (0-5)
[2024-07-31 10:27] LABS: Basophils % (Auto) 0 % (0-2.5); Eosinophils # (Auto) 0.1 Thou/mm3 (0.0-0.5); Eosinophils % (Auto) 1 % (0-10); Hematocrit 26.9 % (41.0-53.0); Immature Granulocytes % (Auto) 0 % (0-0); Immature Granulocytes Auto 0.02 Thou/mm3 (0.00-0.00); Lymphocytes # (Auto) 1.1 Thou/mm3 (1.0-4.8); Lymphocytes % (Auto) 16 % (10-50); Mean Corpuscular HGB Conc 30.1 g/dl (31.0-37.0); Mean Corpuscular Hemoglobin 22.5 pg (25.0-35.0); Mean Corpuscular Volume 75 fL (80-100); Monocytes # (Auto) 0.8 Thou/mm3 (0.0-0.8); Monocytes % (Auto) 13 % (0-12); Neutrophils # (Auto) 4.7 Thou/mm3 (1.8-7.7); Neutrophils % (Auto) 70 % (37-80); Nucleated Red Blood Cell % 0 /100 WBC (0); Platelet Count 305 Thou/mm3 (140-440); RDW Standard Deviation 51.8 fL (35.1-43.9); White Blood Count 6.7 Thou/mm3 (3.8-10.6)
[2024-07-31 10:28] LABS: Hemoglobin 8.1 g/dL (13.5-16.0)
--- NOTE | 2024-07-31 10:47 | PD.EDWEAK ---
ED Weakness RME/HPI General Chief complaint: Weakness Stated complaint: WEAKNESS Time Seen by Provider: 07/31/24 09:24 Arrival date/time: 07/31/24 08:40 Limitations: no limitations RME / HPI RME / HPI Narrative: 69 year old male with history of CHF, AFib s/p pacemaker placement, hypertension, diabetes, hyperlipidemia presents to the ED BIBA from home for evaluation of weakness today. He was seen here 4 days ago for similar symptoms and was noted to be hypoglycemic at that time. He was discharged and followed up with his PCP. Today, while sitting in his kitchen, the patient felt too weak to stand and remained seated for a period of time. His sister, who is present at the bedside, expresses concern, as he lives alone and she is only able to assist him during the day. Patient denies any fevers, chills, chest pain, cough, shortness of breath, abdominal pain, nausea, vomiting, diarrhea, or urinary symptoms. Related Data Home Medications ?Medication ?Instructions ?Recorded ?Confirmed pioglitazone 45 mg tablet (Actos) 45 mg PO DAILY ##0 09/26/09 05/27/22 dexlansoprazole 30 mg 30 mg PO QDAY ##0 10/19/13 05/27/22 capsule,biphase delayed release (Dexilant) alprazolam 1 mg tablet 1 mg PO TID 05/27/22 07/31/24 buspirone 10 mg tablet 10 mg PO TID 05/27/22 07/31/24 flecainide 100 mg tablet 100 mg PO BID 05/27/22 07/31/24 insulin degludec 100 unit/mL See Rx Instructions .Route 05/27/22 07/31/24 subcutaneous solution (Tresiba .COMPLEX PRN Hyperglycemia U-100 Insulin) lovastatin 40 mg tablet 40 mg PO QDAY 05/27/22 07/31/24 metformin 1,000 mg tablet 1,000 mg PO BID 05/27/22 05/27/22 metoprolol succinate 50 mg 50 mg PO BID 05/27/22 07/31/24 tablet,extended release 24 hr triamterene 37.5 1 tab PO BID 05/27/22 05/27/22 mg-hydrochlorothiazide 25 mg tablet warfarin 5 mg tablet 5 mg PO QDAY 05/27/22 07/31/24 Held on 05/27/22. Instructions: Resume on 05/28/22. Previous Rx's ?Medication ?Instructions ?Recorded cephalexin 500 mg tablet 500 mg PO Q6HR #12 tabs 05/27/22 Allergies Allergy/AdvReac Type Severity Reaction Status Date / Time No Known Allergies Allergy Verified 05/27/22 14:54 Review of Systems Review of Systems Systems Reviewed: All systems reviewed, normal except as documented Past Medical History Past Medical History CARDIAC: Positive Cardiac Disorders, Cardiac Arrhythmia, Atrial Fibrillation, Hypercholesterolemia, Congestive Heart Failure, Cellulitis and Hypertension GASTROINTESTINAL: Positive Gall Bladder Disease MUSCULOSKELETAL: Positive Arthritis ENDOCRINE: Positive Diabetes Mellitus Type 2 PSYCHO/SOCIAL: Positive Anxiety OTHER HISTORY: Positive Chicken Pox Family History FAMILY HISTORY: Positive Family Cardiac Disorders and Family Cancer Surgical History SURGICAL: Positive Pacemaker Social History SMOKING STATUS: Never smoker ED Exam General Limitations: Present no limitations General appearance: Present alert, in no apparent distress, obese and other (Pale ) Head Head exam: Present atraumatic, normocephalic and normal inspection Eye Eye exam: Present normal appearance, PERRL and EOMI ENT ENT exam: Present normal exam, normal oropharynx and mucous membranes moist Neck Neck exam: Present normal inspection, full ROM and trachea midline Chest Chest inspection: Present normal inspection and symmetric chest wall rise Respiratory Respiratory exam: Present normal lung sounds bilaterally Cardiovascular Cardiovascular exam: Present regular rate, normal rhythm and other (distant heart sounds ) Abdominal Exam Abdominal exam: Present soft, normal bowel sounds and other (obese) Extremities Exam Extremities exam: Present full ROM and other (wearing stockings on the left for edema, 2+ pitting edema) Back Exam Back exam: Present normal inspection and full ROM Neurological Exam Neurological exam: Present alert, oriented X3 and CN II-XII intact Psychiatric Psychiatric exam: Present normal affect and normal mood Skin Skin exam: Present warm, dry, intact and other (Pale, there is a lot of chronic edema of the belly with mild erythema due to chronic edema) Course Quality Measures none Orders Category Date Time Status COVID-19 Screening Questionnaire NOW Care 07/31/24 12:21 Active Industrial Pipefitter Journeyman NOW Care 07/31/24 09:42 Active Continuous Pulse Oximetry NOW Care 07/31/24 09:42 Completed Decision to Admit X1 Care 07/31/24 12:20 Completed EKG (ED ONLY) *Do not use* NOW Care 07/31/24 09:42 Completed Insert IV NOW Care 07/31/24 09:42 Active Diabetic [Diet Carbohydrate Consistent] Diet 07/31/24 Lunch Active EKG (ED Only) Stat Exams 07/31/24 09:42 Draft XR chest 1V portable Stat Exams 07/31/24 09:42 Completed BNP [B-Type Natriuretic Peptide] Stat Lab 07/31/24 10:14 Completed CBC Stat Lab 07/31/24 10:14 Completed Comprehensive Metabolic Panel Stat Lab 07/31/24 10:14 Completed Partial Thromboplastin Time Stat Lab 07/31/24 10:14 Completed Prothrombin Time with INR Stat Lab 07/31/24 10:14 Completed Troponin I Stat Lab 07/31/24 10:14 Completed Urinalysis Stat Lab 07/31/24 10:02 Completed Doxycycline Inj [Vibramycin Inj] 100 mg Med 07/31/24 11:58 Discontinued Sodium Chloride 0.9% (Pop) [NS 0.9% mini bag] 100 ml IV X1 Furosemide Inj [Lasix Inj] Med 07/31/24 11:58 Discontinued 40 mg IVP X1 ONE Phytonadione Inj [Vitamin K Inj] Med 07/31/24 12:21 Discontinued 5 mg SC X1 ONE Sodium Chloride 0.9% 1000 ml [Ns] 1,000 ml Med 07/31/24 09:41 Active IV 100 mls/hr cefTRIAXone [Rocephin] 2 gm Med 07/31/24 11:55 Discontinued SODIUM CHLORIDE 0.9% (Popper) [Ns 0.9% (P)] 50 ml IV X1 Vital Signs Vital signs: Vital Signs Temperature 98.1 F 07/31/24 08:59 Pulse Rate 87 07/31/24 08:59 Respiratory Rate 18 07/31/24 08:59 Blood Pressure 132/79 H 07/31/24 08:59 Pulse Oximetry (%) 97 07/31/24 08:59 Oxygen Delivery Method Room Air 07/31/24 08:59 Pulse ox is 97% on room air which is adequate. Weakness MDM Narrative MDM Narrative:: Bela Childers am scribing for and in the presence of Dr. Diaz. Patient data External records reviewed:: [facility] previous records (I reviewed ED visit on 07/26/2024 ) and EMS form Clinical information provided by:: patient, EMS and family (sister adds to hpi ) Social determinants that could affect healthcare access:: none Patient has the following chronic illnesses:: CHF, AFib s/p pacemaker placement, hypertension, diabetes, hyperlipidemia How is presenting disease/condition affected by chronic disease/condition?: exacerbated by Evaluation data The following diagnostics were reviewed and interpreted by me:: lab results, radiology exam(s) and EKG tracing(s) (07/31/2024 @ 10:04 AM. Ventricular pacemaker, rate 70, QRS 225ms, QT/QTc 508/529 ms. ) Lab and/or radiology exams considered but not ordered:: None Interpretation Summary: Ordering Physician: Eliazar Diaz MD Date of Service: 07/31/24 Procedure(s): XR chest 1V portable Accession Number(s): [id number] cc: Eliazar Diaz MD; Bon Zaragoza MD~ Examination: AP chest single view Technique one AP portable semiupright chest single view Date and time: July 31, 2024 0957 hrs. Comparison May 27, 2022 Indications: Coughing shortness of breath 3 days. Findings: Mild to moderate CHF Moderate enlargement cardiac contour. Prominent vascular congestion with perihilar basilar edema Consider superimposed pneumonia left base Cardiac leads stable position Possible pneumonia left base Impression: Mild to moderate CHF Suspicious for superimposed pneumonia left base Dictated By: Bon Zaragoza MD Signed By: <Electronically signed by Bon Zaragoza MD in OV>07/31/24 1121 Medications / Prescriptions Medications or Prescriptions considered but not ordered:: None Medication administrations:: Medication Administration History Acetaminophen (Acetaminophen 325 Mg Tablet) 650 mg PO Q6H PRN PRN Reason: Fever >100.3 or pain Stop: 08/30/24 14:46 Alprazolam (Alprazolam 0.25 Mg Tablet) 0.5 mg PO BID [facility]AR Stop: 08/05/24 20:59 Atorvastatin Calcium (Atorvastatin Calcium 20 Mg Tablet) 20 mg PO HS SCAR Stop: 08/30/24 20:59 Buspirone HCl (Buspirone Hcl 5 Mg Tablet) 10 mg PO TID SCAR Stop: 08/30/24 21:59 Dextrose (Dextrose 50%-Water Inj 50 Ml Syringe) 25 ml IV Q15MIN PRN PRN Reason: BG 50-70 responsive npo pt Stop: 08/30/24 14:49 Dextrose (Dextrose 50%-Water Inj 50 Ml Syringe) 50 ml IV Q15MIN PRN PRN Reason: BG <50 OR BG <70 & pt unresponsive Stop: 08/30/24 14:49 Flecainide Acetate (Flecainide Acet 50 Mg Tablet) 100 mg PO BID [facility] Stop: 08/30/24 20:59 Glucagon (Glucagon Inj 1 Mg Vial) 1 mg IM Q15MIN PRN PRN Reason: BG <70, and no IV access Sodium Chloride (Ns) 1,000 mls @ 100 mls/hr IV .Q10H ONE Stop: 07/31/24 19:40 Last Admin: 07/31/24 10:18 Dose: 100 mls/hr Documented By: LESLIE Ceftriaxone Sodium/Dextrose (Rocephin/D5w 1gm Iv Premix) 1 gm in 50 mls @ 100 mls/hr IV QDAY [facility] Stop: 08/08/24 08:59 Insulin Human Lispro (Insulin Lispro (Admelog) 1 Unit/0.01 Ml Unit) 0 unit SC [facility]; Protocol Stop: 08/30/24 16:59 Metoprolol Succinate (Metoprolol Succinate Xl 25 Mg Tabcr) 50 mg PO BID [facility] Stop: 08/30/24 20:59 Ondansetron HCl (Ondansetron Inj 2 Mg/Ml Inj 2 Ml) 4 mg IVP Q6H PRN; Protocol PRN Reason: NAUSEA OR VOMITING Stop: 08/30/24 14:46 Pantoprazole Sodium (Pantoprazole Inj 40 Mg Vial) 40 mg IVP QDAY [facility] Stop: 08/30/24 15:59 Pharmacy Consult (Pharmacy To Dose Warfarin) 1 each PO QDAY PRN PRN Reason: PROTOCOL Stop: 08/31/24 08:59 Discontinued Medications Furosemide (Furosemide Inj 10 Mg/Ml 4ml Vial) 40 mg IVP X1 ONE Stop: 07/31/24 11:59 Last Admin: 07/31/24 12:36 Dose: 40 mg Documented By: LESLIE Hydrochlorothiazide (Hydrochlorothiazide 12.5 Mg Capsule) 25 mg PO BIDD [facility] Stop: 08/30/24 17:59 Ceftriaxone Sodium 2 gm/ (Sodium Chloride) 50 mls @ 100 mls/hr IV X1 ONE Stop: 07/31/24 12:24 Last Infusion: 07/31/24 13:30 Dose: Infused Documented By: Admin: 07/31/24 12:35 Dose: 100 mls/hr Documented By: LESLIE Doxycycline Hyclate 100 mg/ (Sodium Chloride) 100 mls @ 100 mls/hr IV X1 ONE Stop: 07/31/24 12:57 Last Infusion: 07/31/24 14:43 Dose: Infused Documented By: Admin: 07/31/24 13:37 Dose: 100 mls/hr Documented By: LESLIE Phytonadione (Phytonadione Inj 10 Mg/Ml Amp) 5 mg SC X1 ONE Stop: 07/31/24 12:22 Last Admin: 07/31/24 12:36 Dose: 5 mg Documented By: LESLIE See above Consultations Consultation(s) initiated? (list below): Yes Consultation #1 (Physician, Specialty, Details): I spoke with resident Dr. Rizzo working with Dr. Costa. Discussed patients PMHx, HPI, ED course, exam findings, labs, and radiology results. The hospitalist agree to accept the patient for admission. Diagnosis Weakness Differential Diagnosis: anemia, hypothyroidism, sepsis and dehydration Most likely diagnosis given after review of the tests above:: Anemia Prolonged INR UTI CHF Pneumonia Admission Indicated Admission indicated?: indicated Admission Request Was there a request for admission?: Yes Admission Attestation Admission request attestation: Discussed case with [] from Hospitalist service regarding admission. Discussed patients ED course, exam findings, labs, and radiology results. The Hospitalist [agrees,declines] to accept the patient for admission. Disposition Plan Disposition Plan: Admit Discharge Plan Plan Patient Disposition: Admit Acute Care w/in Hospital Problem List Clinical Impression: Anemia, Prolonged INR, Acute UTI, CHF (congestive heart failure), Pneumonia
[2024-07-31 10:53] LABS: Alanine Aminotransferase 28 U/L (10-49); Albumin, Serum 4.2 gm/dL (3.4-4.8); Albumin/Globulin Ratio 1.8 (1.2-2.2); Alkaline Phosphatase 78 U/L (46-116); Anion Gap 12 (7-16); BUN/Creatinine Ratio 25 Ratio (12-20); Bilirubin,Total 0.7 mg/dL (0.3-1.2); Blood Urea Nitrogen 33 mg/dL (9-23); Calcium 8.8 mg/dL (8.3-10.6); Calcium (Corrected) 8.8 mg/dL (8.5-10.1); Carbon Dioxide 24.5 mMol/L (20.0-31.0); Chloride 104 mMol/L (98-107); Creatinine (Component) 1.3 mg/dL (0.6-1.3); Estimated Creatinine Clearance 77.1 mL/min (>60); Globulin 2.4 gm/dL (2.3-3.5); Glucose 113 mg/dL (74-106); Osmolality,Calculated 287 (275-295); Potassium 4.4 mMol/L (3.4-5.1); Sodium 140 mMol/L (136-145); Total Protein 6.6 gm/dL (5.7-8.2); Troponin I < 0.020 ng/mL (0.0-0.045); eGFR 59 See Note
[2024-07-31 10:58] LABS: Partial Thromboplastin Time 38.3 Seconds (22.0-36.0)
[2024-07-31 11:16] LABS: Prothrombin Time 39.3 Seconds (9.0-12.2)
[2024-07-31] MEDS: cefTRIAXone 2 GM in SODIUM CHLORIDE 0.9% (Popper) 50 ML IV (12:35)
[2024-07-31] MEDS: FUROSEMIDE INJ 10 MG/ML 4ML VIAL 40 MG IVP (12:36)
[2024-07-31] MEDS: PHYTONADIONE INJ 10 MG/ML AMP 5 MG SC (12:36)
[2024-07-31 12:53] LABS: B-Type Natriuretic Peptide 841 pg/mL (0-100)
[2024-07-31] MEDS: DOXYCYCLINE INJ 100 MG in SODIUM CHLORIDE 0.9% (POP) 100 ML IV (13:37)
--- NOTE | 2024-07-31 14:53 | PD.RESHP ---
Documentation for date of: 07/31/24 [facility] History of Present Illness Chief complaint: general weakness History of present illness: The patient is a 69-year-old male with a previous medical history of hypertension, HLD, type 2 diabetes, A-fib on warfarin, status post pacemaker placement, chronic venous insufficiency with chronic lower extremity wounds, morbid obesity who was brought to the ED on 07/31/2024 due to the general weakness and 2 episodes of ground-level fall. Patient started to feel weak with diarrhea, abdominal pain, burning with urination on Thursday last week. Denies fever, chills, cough, shortness of breath, chest pain. He also started to become weak and he fell twice due to legs giving out . He and his sister denies loss of consciousness or trauma to the head. He denies bloody stools, nausea vomiting or blood. In the ED: He was hemodynamically stable, afebrile, saturating well on room air. Labs were significant for WBC count 6.7, hemoglobin 8.1, platelets 325. INR was 4.0. UA was positive for signs of UTI. Chest x-ray showed mild to moderate CHF. EKG showed ventricular pacing. FOBT was positive. Patient is admitted for complicated UTI and suspected GI bleeding workup and management. Social history: Able to ambulate independently on the baseline. Does not smoke cigarettes and does not drink alcohol. Medications: Flecainide, BuSpar, alprazolam, lovastatin, triamterene/hydrochlorothiazide, pantoprazole, metoprolol, Tresiba. Allergies: Denies Surgeries: Cholecystectomy, left knee surgery after trauma. Review of Systems Review of Systems Systems Reviewed: All systems reviewed, normal except as documented Past Medical History Past Medical History NEUROLOGIC: Negative Neurological Disorders CARDIAC: Positive Cardiac Disorders, Cardiac Arrhythmia, Atrial Fibrillation, Hypercholesterolemia, Congestive Heart Failure, Cellulitis (LEFT ANKLE ULCER) and Hypertension RESPIRATORY: Negative Chronic Obstructive Pulmonary Disease (COPD) GASTROINTESTINAL: Positive Gall Bladder Disease GENITOURINARY: Negative Renal Disease MUSCULOSKELETAL: Positive Arthritis ENDOCRINE: Positive Diabetes Mellitus Type 2; Negative Diabetes Mellitus Type 1 HEMATOLOGIC: Negative Blood Disorders PSYCHO/SOCIAL: Positive Anxiety OTHER HISTORY: Positive Chicken Pox Family History FAMILY HISTORY: Positive Family Cardiac Disorders (MOTHER) and Family Cancer (FATHER LUNG CA) Surgical History SURGICAL: Positive Pacemaker Social History SMOKING STATUS: Never smoker Exam Vital Signs Temp Pulse Resp BP Pulse Ox O2 Del Method 98.1 F 78 18 133/81 H 97 Room Air 07/31/24 08:59 07/31/24 12:36 07/31/24 08:59 07/31/24 12:36 07/31/24 08:59 07/31/24 08:59 Narrative Exam Gen: Well-developed and well-nourished. HEENT: NCAT, PERRLA, EOMI, MMM, anicteric conjunctivae. CVS: normal S1 and S2. RRR. No M/R/G. Resp: CTA B/L. No rhonchi, rales, crackles or wheezing. Abd: soft, diffusely tender, distended (due to habitus). BS+ in all 4 quadrants. MSK: Bilateral chronic venous stasis dermatitis. Left lower extremity wound. Neuro: CN II-XII grossly intact. Strength 5/5 in BUE & BLE. Alert and oriented x3. Psych: appropriate mood and affect. Results: Labs 08/01/24 04:45 08/01/24 04:45 Labs: Short CBC 07/31/24 Range/Units 10:14 WBC 6.7 (3.8-10.6) Thou/mm3 Hgb 8.1 L (13.5-16.0) g/dL Hct 26.9 L (41.0-53.0) % Plt Count 305 D (140-440) Thou/mm3 BMP 07/31/24 10:14 Sodium 140 Potassium 4.4 Chloride 104 Carbon Dioxide 24.5 BUN 33 H Creatinine 1.3 Glucose 113 H Calcium 8.8 Cardiac Enzymes 07/31/24 Range/Units 10:14 Troponin I < 0.020 (0.0-0.045) ng/mL Liver Function 07/31/24 Range/Units 10:14 Total Bilirubin 0.7 (0.3-1.2) mg/dL ALT 28 (10-49) U/L Alkaline Phosphatase 78 (46-116) U/L Albumin 4.2 (3.4-4.8) gm/dL Urine 07/31/24 Range/Units 10:02 Urine Color Lt-Yellow (Lt Yel-Yel) Urine Clarity Turbid A (Clear/Hazy) Urine pH 8.0 H (5.0-7.0) Ur Specific [place] 1.015 (1.001-1.035) Urine Protein 1+ A (Neg - Trace) Urine Glucose (UA) Negative (Negative) Quality Measures Quality Measures VTE prophylaxis Advance care planning discussed with:: patient Medications Home Medications and Allergies Home Medications ?Medication ?Instructions ?Recorded ?Confirmed ?Type dexlansoprazole 30 mg 30 mg PO QDAY ##0 10/19/13 05/27/22 History capsule,biphase delayed release (Dexilant) alprazolam 1 mg tablet 1 mg PO TID 05/27/22 07/31/24 History buspirone 10 mg tablet 10 mg PO TID 05/27/22 07/31/24 History flecainide 100 mg tablet 100 mg PO BID 05/27/22 07/31/24 History insulin degludec 100 unit/mL 15 unit subcut Q24H Hyperglycemia 05/27/22 08/01/24 History subcutaneous solution (Tresiba U-100 Insulin) lovastatin 40 mg tablet 40 mg PO QDAY 05/27/22 07/31/24 History metoprolol succinate 50 mg 50 mg PO BID 05/27/22 07/31/24 History tablet,extended release 24 hr triamterene 37.5 1 tab PO BID 05/27/22 08/01/24 History mg-hydrochlorothiazide 25 mg tablet warfarin 5 mg tablet 5 mg PO QDAY 05/27/22 08/01/24 History ferrous sulfate 325 mg (65 mg mg 08/01/24 History iron) tablet (FeroSul) pantoprazole 40 mg tablet,delayed 40 mg PO DAILY 08/01/24 08/01/24 History release sulfamethoxazole 800 tab 08/01/24 History mg-trimethoprim 160 mg tablet Allergies Allergy/AdvReac Type Severity Reaction Status Date / Time No Known Allergies Allergy Verified 05/27/22 14:54 Visit Medications Acetaminophen (Acetaminophen 325 Mg Tablet) 650 mg PO Q6H PRN PRN Reason: Fever >100.3 or pain Stop: 08/30/24 14:46 Dextrose (Dextrose 50%-Water Inj 50 Ml Syringe) 25 ml IV Q15MIN PRN PRN Reason: BG 50-70 responsive npo pt Stop: 08/30/24 14:49 Dextrose (Dextrose 50%-Water Inj 50 Ml Syringe) 50 ml IV Q15MIN PRN PRN Reason: BG <50 OR BG <70 & pt unresponsive Stop: 08/30/24 14:49 Glucagon (Glucagon Inj 1 Mg Vial) 1 mg IM Q15MIN PRN PRN Reason: BG <70, and no IV access Sodium Chloride (Ns) 1,000 mls @ 100 mls/hr IV .Q10H ONE Stop: 07/31/24 19:40 Last Admin: 07/31/24 10:18 Dose: 100 mls/hr Ceftriaxone Sodium/Dextrose (Rocephin/D5w 1gm Iv Premix) 1 gm in 50 mls @ 100 mls/hr IV QDAY [facility] Stop: 08/08/24 08:59 Insulin Human Lispro (Insulin Lispro (Admelog) 1 Unit/0.01 Ml Unit) 0 unit SC [facility]; Protocol Stop: 08/30/24 16:59 Ondansetron HCl (Ondansetron Inj 2 Mg/Ml Inj 2 Ml) 4 mg IVP Q6H PRN; Protocol PRN Reason: NAUSEA OR VOMITING Stop: 08/30/24 14:46 Pharmacy Consult (Pharmacy To Dose Warfarin) 1 each PO QDAY PRN PRN Reason: PROTOCOL Stop: 08/31/24 08:59 Discontinued Medications Furosemide (Furosemide Inj 10 Mg/Ml 4ml Vial) 40 mg IVP X1 ONE Stop: 07/31/24 11:59 Last Admin: 07/31/24 12:36 Dose: 40 mg Ceftriaxone Sodium 2 gm/ (Sodium Chloride) 50 mls @ 100 mls/hr IV X1 ONE Stop: 07/31/24 12:24 Last Infusion: 07/31/24 13:30 Dose: Infused Doxycycline Hyclate 100 mg/ (Sodium Chloride) 100 mls @ 100 mls/hr IV X1 ONE Stop: 07/31/24 12:57 Last Infusion: 07/31/24 14:43 Dose: Infused Phytonadione (Phytonadione Inj 10 Mg/Ml Amp) 5 mg SC X1 ONE Stop: 07/31/24 12:22 Last Admin: 07/31/24 12:36 Dose: 5 mg Assessment & Plan Plan The patient is a 69-year-old male with a previous medical history of hypertension, type 2 diabetes, A-fib on warfarin, status post pacemaker placement, chronic venous insufficiency with chronic lower extremity wounds who was brought to the ED on 07/31/2024 due to the general weakness and 2 episodes of ground-level fall. #General weakness #Ground level falls #Complicated UTI Patient has urinary urgency that started since Thursday. UA showed signs of UTI Plan: - ceftriaxone 1 g qday 07/31/24-current - urine culture #Chronic anemia #Suspected GI bleed #Diarrhea FOBT was positive. Patient denies hematemesis, melena, hematochezia. Plan: - Consulted GI - Pantoprazole 40 mg qday - Banatrol packet - warfarin on hold for now - transfuse of Hgb<7 - iron panel #Type 2 DM Plan: - ISS - glargine 15U - Hypoglycemia protocol #Afib of warfarine #Hypertension #Hyperlipidemia Plan: - resumed home flecainide - resumed home metoprolol - held home hydrochlorothiazide - atorvastatin 20 mg qday - warfarin on hold for now #Anxiety Plan: - resumed home buspar - resumed home xanax in lower dose Health maintenance: FEN: carbohydrate consistent DVT prophylaxis: lovenox 40 mg qday GI prophylaxis: pantoprazole 40 mg qday Dispo: medtele CODE STATUS: Full code Plan of care discussed with attending Dr. Costa. Alcira Rizzo MD, PGY 1. Attending Provider Attestation/Addendum I, Diana Costa DO, attest that I was physically present for the sidhu portions of the service and evaluated the patient with the resident and I reviewed and discussed the case with the resident and agree with the resident's findings and plans of care as documented above Patient is a 69 year old male with Pmhx of HTN, HLD, T2DM, afib on warfarin, s/p ppm, chronic venous insufficiency and wounds, BMI of 46 who presented to the ED with worsening generalized weakness for the past week. He has had dysuria and had a ground level fall this morning. He denies shortness of breath or chest pain, but admits to diarrhea when he eats. Patient states he has eaten less due to diarrhea, but denies any recent antibiotics. He states that he has started taking iron pills recently due to anemia. He denies noting any blood in stool or dark stool. In the ED, patient was found to have supratherapeutic INR of 4.0. CXR showed mild to moderate CHF and left basilar pneumonia. However, patient appears comfortable on room air. B/l LE appear to have 1+ pitting edema in b/l LE and scattered wounds of different stages. UA appears to have some bacteria. Patient states that he has been having accidents due to frequent urination and diarrhea, as well as generalized weakness. Suspect possible acute blood loss anemia resulting in generalized weakness in the setting of supratherapeutic INR. Patient received kcentra in the ED. Guaiac was done and was positive. Will admit patient to telemetry for further workup and medical management for anemia and UTI. Will place singh catheter due to frequent urination. Will order iron panel and hold warfarin.
[2024-07-31] MEDS: INSULIN LISPRO (AdmeLOG) 1 UNIT/0.01 ML UNIT SC (17:16)
[2024-07-31 17:41] LABS: Ferritin 31 ng/mL (10.5-307.3)
[2024-07-31] MEDS: PANTOPRAZOLE INJ 40 MG VIAL IVP (17:42)
--- NOTE | 2024-07-31 18:24 | PC.NURSE ---
bleeding with small clots noted on singh catheter tubing, Dr. Hawkins made aware. No new orders.
--- NOTE | 2024-07-31 19:28 | PC.NURSE ---
Sister Stephanie took medications home. Patient will call to bring meds tomorrow.
--- NOTE | 2024-07-31 20:59 | PD.IMCONS ---
HPI Data of Consult Requesting Physician: Diana Costa DO Primary Care Provider: Dre Harris MD Consult Narrative Reason for consult: anemia of blood loss FOBT positive History of present illness: 69-year-old male brought in by the family because of weakness and ground-level falls at least 2 of them without any loss of consciousness I am consulted because of FOBT positive and the presenting hemoglobin hematocrit 8.1 and 26.9 Patient is on warfarin for atrial fibrillation and pro time INR was 4.0 with a BUN/creatinine of 35 and 1.2 No history of any hematemesis melena or bright red bleeding per rectum or hematochezia Patient has a very complicated past medical history of hypertension hyperlipidemia atrial fibrillation on warfarin pacemaker placement chronic lower extremity wounds with edema and congestive heart failure with a BNP presenting at 551 going up to 841 and the chest x-ray showing moderate pulmonary congestion with a right basal pneumonia cc:: cc: Diana Costa DO Review of Systems Review of Systems Systems Reviewed: All systems reviewed, normal except as documented Past Medical History Surgical History OTHER SURGICAL HX: As in the history of present illness Meds Home Medications and Allergies Home Medications ?Medication ?Instructions ?Recorded ?Confirmed ?Type pioglitazone 45 mg tablet (Actos) 45 mg PO DAILY ##0 09/26/09 05/27/22 History dexlansoprazole 30 mg 30 mg PO QDAY ##0 10/19/13 05/27/22 History capsule,biphase delayed release (Dexilant) alprazolam 1 mg tablet 1 mg PO TID 05/27/22 07/31/24 History buspirone 10 mg tablet 10 mg PO TID 05/27/22 07/31/24 History flecainide 100 mg tablet 100 mg PO BID 05/27/22 07/31/24 History insulin degludec 100 unit/mL See Rx Instructions .Route 05/27/22 07/31/24 History subcutaneous solution (Tresiba .COMPLEX PRN Hyperglycemia U-100 Insulin) lovastatin 40 mg tablet 40 mg PO QDAY 05/27/22 07/31/24 History metformin 1,000 mg tablet 1,000 mg PO BID 05/27/22 05/27/22 History metoprolol succinate 50 mg 50 mg PO BID 05/27/22 07/31/24 History tablet,extended release 24 hr triamterene 37.5 1 tab PO BID 05/27/22 05/27/22 History mg-hydrochlorothiazide 25 mg tablet warfarin 5 mg tablet 5 mg PO QDAY 05/27/22 07/31/24 History Held on 05/27/22. Instructions: Resume on 05/28/22. Allergies Allergy/AdvReac Type Severity Reaction Status Date / Time No Known Allergies Allergy Verified 05/27/22 14:54 Exam Vital Signs Temp Pulse Resp BP Pulse Ox O2 Del Method 98.5 F 68 16 123/79 95 Room Air 07/31/24 16:58 07/31/24 18:30 07/31/24 16:58 07/31/24 16:58 07/31/24 16:58 07/31/24 15:08 Routine Respiratory Exam Comments: Scattered rhonchi Routine Abdominal Exam Comments: Soft nontender Results Labs 07/31/24 10:14 07/31/24 10:14 Labs: Short CBC 07/31/24 Range/Units 10:14 WBC 6.7 (3.8-10.6) Thou/mm3 Hgb 8.1 L (13.5-16.0) g/dL Hct 26.9 L (41.0-53.0) % Plt Count 305 D (140-440) Thou/mm3 BMP 07/31/24 10:14 Sodium 140 Potassium 4.4 Chloride 104 Carbon Dioxide 24.5 BUN 33 H Creatinine 1.3 Glucose 113 H Calcium 8.8 Cardiac Enzymes 07/31/24 Range/Units 10:14 Troponin I < 0.020 (0.0-0.045) ng/mL Liver Function 07/31/24 Range/Units 10:14 Total Bilirubin 0.7 (0.3-1.2) mg/dL ALT 28 (10-49) U/L Alkaline Phosphatase 78 (46-116) U/L Albumin 4.2 (3.4-4.8) gm/dL Urine 07/31/24 Range/Units 10:02 Urine Color Lt-Yellow (Lt Yel-Yel) Urine Clarity Turbid A (Clear/Hazy) Urine pH 8.0 H (5.0-7.0) Ur Specific [place] 1.015 (1.001-1.035) Urine Protein 1+ A (Neg - Trace) Urine Glucose (UA) Negative (Negative) Assessment and Plan Additional Assessment & Plan Additional Plan: # Anemia blood loss # FOBT positive Plan Clear liquid diet N.p.o. tomorrow at 10 AM Consent obtained for fiberoptic esophagogastroduodenoscopy with possible biopsy possible therapeutic intervention under intravenous moderate sedation If EGD negative we may or may not consider fiberoptic colonoscopy depending upon his generalized health Other medical problems include Essential hypertension Hyperlipidemia Atrial fibrillation on warfarin Status post placement of a permanent cardiac pacemaker Chronic lower extremity edema with wounds Thank you very much for the opportunity to participate in the care of this patient
[2024-07-31] MEDS: INSULIN GLARGINE (Lantus) 5 UNIT/0.05 ML (PER 5 UNITS) 15 UNIT SC (21:41)
[2024-07-31] MEDS: ALPRazoLAM 0.25 MG TABLET 0.5 MG PO (21:51)
[2024-07-31] MEDS: FLECAINIDE ACET 50 MG TABLET 100 MG PO (21:51)
[2024-07-31] MEDS: BusPIRone HCL 5 MG TABLET 10 MG PO (21:51)
[2024-07-31] MEDS: ATORVASTATIN CALCIUM 20 MG TABLET PO (21:52)
[2024-07-31] MEDS: METOPROLOL SUCCINATE XL 25 MG TABCR 50 MG PO (21:52)
[2024-08-01] VITALS (25 sets, daily range): BP systolic 97–165; BP diastolic 51–100; PULSE 52–96; RESP 15–22; TEMP 36.8–37.2; O2SAT 90–98
--- NOTE | 2024-08-01 02:32 | PC.NURSE ---
Per Ana PRICE, Pt's sister will being meds in to do med rec.
[2024-08-01 05:43] LABS: Basophils # (Auto) 0.1 Thou/mm3 (0.0-0.2); Basophils % (Auto) 1 % (0-2.5); Eosinophils # (Auto) 0.2 Thou/mm3 (0.0-0.5); Eosinophils % (Auto) 2 % (0-10); Hematocrit 25.5 % (41.0-53.0); Immature Granulocytes % (Auto) 0 % (0-0); Immature Granulocytes Auto 0.03 Thou/mm3 (0.00-0.00); Immature Reticulocyte Fraction 37.7 % (2.3-13.4); Lymphocytes # (Auto) 1.2 Thou/mm3 (1.0-4.8); Lymphocytes % (Auto) 17 % (10-50); Mean Corpuscular HGB Conc 29.8 g/dl (31.0-37.0); Mean Corpuscular Hemoglobin 22.8 pg (25.0-35.0); Mean Corpuscular Volume 77 fL (80-100); Monocytes # (Auto) 1.1 Thou/mm3 (0.0-0.8); Monocytes % (Auto) 16 % (0-12); Neutrophils # (Auto) 4.6 Thou/mm3 (1.8-7.7); Neutrophils % (Auto) 64 % (37-80); Nucleated Red Blood Cell % 0 /100 WBC (0); Platelet Count 247 Thou/mm3 (140-440); RDW Standard Deviation 52.7 fL (35.1-43.9); Red Blood Count 3.33 Miln/mm3 (4.50-5.90); Reticulocyte % (Auto) 2.5 % (0.5-1.5); Reticulocyte Absolute Auto 83.3 Biln/L (25.0-75.0); Reticulocyte Hgb Content 28.6 pg (28.0-35.0); White Blood Count 7.2 Thou/mm3 (3.8-10.6)
[2024-08-01] MEDS: BusPIRone HCL 5 MG TABLET 10 MG PO ×2 (05:49→22:06)
[2024-08-01 05:57] LABS: INR 2.9 (0.9-1.3); Partial Thromboplastin Time 36.4 Seconds (22.0-36.0); Prothrombin Time 29.8 Seconds (9.0-12.2)
[2024-08-01 06:02] LABS: Iron 23 mcg/dL (65-175); Percent Iron Saturation 7 % (20-55); Total Iron Binding Capacity 294 mcg/dL (250-425); Unsaturated Iron Binding 271 (225-295)
[2024-08-01 06:14] LABS: Alanine Aminotransferase 25 U/L (10-49); Albumin, Serum 3.5 gm/dL (3.4-4.8); Albumin/Globulin Ratio 1.8 (1.2-2.2); Alkaline Phosphatase 70 U/L (46-116); Anion Gap 13 (7-16); BUN/Creatinine Ratio 22 Ratio (12-20); Bilirubin,Total 0.6 mg/dL (0.3-1.2); Blood Urea Nitrogen 24 mg/dL (9-23); Calcium 8.2 mg/dL (8.3-10.6); Calcium (Corrected) 8.6 mg/dL (8.5-10.1); Carbon Dioxide 26.8 mMol/L (20.0-31.0); Chloride 104 mMol/L (98-107); Creatinine (Component) 1.1 mg/dL (0.6-1.3); Estimated Creatinine Clearance 116.8 mL/min (>60); Glucose 124 mg/dL (74-106); Magnesium 1.5 mg/dL (1.6-2.6); Osmolality,Calculated 291 (275-295); Phosphorous 3.2 mg/dL (2.4-5.1); Sodium 144 mMol/L (136-145); Total Protein 5.5 gm/dL (5.7-8.2); eGFR > 60 See Note
[2024-08-01 06:17] LABS: Hemoglobin 7.6 g/dL (13.5-16.0)
[2024-08-01] MEDS: cefTRIAXone/D5w 1gm IV premix 1 GM/50 ML BAG IV (08:38)
[2024-08-01] MEDS: PANTOPRAZOLE INJ 40 MG VIAL IVP (08:38)
[2024-08-01] MEDS: ALPRazoLAM 0.25 MG TABLET 0.5 MG PO ×2 (08:39→22:06)
[2024-08-01] MEDS: METOPROLOL SUCCINATE XL 25 MG TABCR 50 MG PO ×2 (08:39→22:06)
--- NOTE | 2024-08-01 10:29 | ESPR_ITS ---
<Statement entered by Dennis Gonzalez MD - 08/02/24 09:09> Per sister, patient doing much better than yesterday. He continues to complain of some dysuria, possible secondary to stones. Patient will undergo endoscopy today by Dr. Schroeder. Ucx and Bcx pending. Will give x1 20 mg IV lasix for the LE edema. Will continue current Rocephin abx. I discussed with and supervised the management intern physician involved in the care of this patient. Patient assessment and plan was discussed with entire medicine team, including my attending. I agree with the assessment and plan as documented by management intern doctor. Patient care was discussed with my attending physician Dr. Igor Gonzalez, PGY-2 Documentation for date of: 08/01/24 Subjective Subjective Interval history: Patient was seen and examined by the bedside. No acute overnight events. Patient reports that overnight he did not had bowel movements, reports colicky abdominal pain improved. Continues to have dysuria. Continues to receive antibiotics. Pending EGD. Pending PT eval. Will continue to hold warfarin in the setting of suspected GI bleed. Patient NPO after 10 AM for EGD. Exam Vital Signs Temp Pulse Resp BP Pulse Ox O2 Del Method 98.6 F 52 L 18 101/51 L 90 L Room Air 08/01/24 08:00 08/01/24 08:39 08/01/24 08:00 08/01/24 08:39 08/01/24 08:00 08/01/24 04:00 Narrative Exam Gen: Well-developed and well-nourished. HEENT: NCAT, PERRLA, EOMI, MMM, anicteric conjunctivae. CVS: normal S1 and S2. RRR. No M/R/G. Resp: CTA B/L. No rhonchi, rales, crackles or wheezing. Abd: soft, diffusely tender, distended (due to habitus). BS+ in all 4 quadrants. MSK: Bilateral chronic venous stasis dermatitis. Left lower extremity wound. Neuro: CN II-XII grossly intact. Strength 5/5 in BUE & BLE. Alert and oriented x3. Psych: appropriate mood and affect. Objective Labs 08/02/24 04:32 08/02/24 04:32 Labs: Laboratory Results - last 24 hr 07/31/24 07/31/2408/01/25 10:02 10:14 04:45 WBC 6.7 7.2 RBC 3.60 L 3.33 L Hgb 8.1 L 7.6 L Hct 26.9 L 25.5 L MCV 75 L 77 L MCH 22.5 L 22.8 L MCHC 30.1 L 29.8 L RDW Std Deviation 51.8 H 52.7 H Plt Count 305 D 247 D Neut % (Auto) 70 64 Lymph % (Auto) 16 17 [place] % (Auto) 13 H 16 H Eos % (Auto) 1 2 Baso % (Auto) 0 1 Neut # (Auto) 4.7 4.6 Lymph # (Auto) 1.1 1.2 [place] # (Auto) 0.8 1.1 H Eos # (Auto) 0.1 0.2 Baso # (Auto) 0.0 0.1 Immature Gran # (Auto) 0.02 H 0.03 H Absolute Nucleated RBC 0.00 0.00 Immature Gran % 0 0 Nucleated RBC % 0 0 Retic Count (auto) 2.5 H Absolute Retic 83.3 H Immature Retic Fraction 37.7 H Retic Hgb Content CHr 28.6 PT 39.3 H* D 29.8 H D INR 4.0 H* 2.9 H APTT 38.3 H 36.4 H Sodium 140 144 Potassium 4.4 4.0 Chloride 104 104 Carbon Dioxide 24.5 26.8 Anion Gap 12 13 BUN 33 H 24 H Creatinine 1.3 1.1 Estim Creat Clear Calc 77.1 116.8 eGFR 59 L > 60 BUN/Creatinine Ratio 25 H 22 H Glucose 113 H 124 H Calculated Osmolality 287 291 Calcium 8.8 8.2 L Corrected Calcium 8.8 8.6 Phosphorus 3.2 Magnesium 1.5 L Iron 23 L TIBC 294 Iron Saturation 7 L Unsat Iron Binding 271 Ferritin 31 Total Bilirubin 0.7 0.6 ALT 28 25 Alkaline Phosphatase 78 70 Troponin I < 0.020 B-Natriuretic Peptide 841 H* Total Protein 6.6 5.5 L Albumin 4.2 3.5 D Globulin 2.4 2.0 L Albumin/Globulin Ratio 1.8 1.8 Ur Collection Type Clean Catch Urine Color Lt-Yellow Urine Clarity Turbid A Urine pH 8.0 H Ur Specific [place] 1.015 Urine Protein 1+ A Urine Glucose (UA) Negative Urine Ketones Negative Urine Blood 2+ A Urine Nitrite Positive Urine Bilirubin Negative Urine Urobilinogen (Auto) Negative Ur Leukocyte Esterase Positive Urine RBC 87 H Urine WBC 116 H Ur Squamous Epith Cells 0 Triple Phos Crystals 1+ A Urine Bacteria Rare Hyaline Casts < 1 Quality Measures Quality Measures none Advance care planning discussed with:: other Assessment & Plan Assessment Current Active Medications: Generic Name Dose Route Start Last Admin Trade Name Freq PRN Reason Stop Dose Admin Acetaminophen 650 mg 07/31/24 14:47 Acetaminophen 325 Mg Tablet PO 08/30/24 14:46 Q6H PRN Fever >100.3 or pain Alprazolam 0.5 mg 07/31/24 21:00 08/01/24 08:39 Alprazolam 0.25 Mg Tablet PO 08/05/24 20:59 0.5 mg BID SCAR Administration Atorvastatin Calcium 20 mg 07/31/24 21:00 07/31/24 21:52 Atorvastatin Calcium 20 Mg Tablet PO 08/30/24 20:59 20 mg HS SCAR Administration Buspirone HCl 10 mg 07/31/24 22:00 08/01/24 05:49 Buspirone Hcl 5 Mg Tablet PO 08/30/24 21:59 10 mg TID SCAR Administration Dextrose 25 ml 07/31/24 14:50 Dextrose 50%-Water Inj 50 Ml Syringe IV 08/30/24 14:49 Q15MIN PRN BG 50-70 responsive npo pt Dextrose 50 ml 07/31/24 14:50 Dextrose 50%-Water Inj 50 Ml Syringe IV 08/30/24 14:49 Q15MIN PRN BG <50 OR BG <70 & pt unresponsive Flecainide Acetate 100 mg 07/31/24 21:00 07/31/24 21:51 Flecainide Acet 50 Mg Tablet PO 08/30/24 20:59 100 mg BID SCAR Administration Glucagon 1 mg 07/31/24 14:50 Glucagon Inj 1 Mg Vial IM Q15MIN PRN BG <70, and no IV access Ceftriaxone Sodium/Dextrose 1 gm in 50 mls @ 100 mls/hr 08/01/24 09:00 08/01/24 08:38 Rocephin/D5w 1gm Iv Premix IV 08/08/24 08:59 100 mls/hr QDAY SCAR Administration Magnesium Sulfate 4 gm in 50 mls @ 12.5 mls/hr 08/01/24 07:43 Magnesium Sulfate Ivpb IV 08/01/24 11:42 X1 ONE Insulin Glargine 15 unit 07/31/24 21:00 07/31/24 21:41 Insulin Glargine (Lantus) 5 Unit/0.05 Ml (Per 5 Units) SC 08/30/24 20:59 15 unit HS SCAR Administration Insulin Human Lispro 0 unit 07/31/24 17:00 08/01/24 08:51 Insulin Lispro (Admelog) 1 Unit/0.01 Ml Unit SC 08/30/24 16:59 Not Given AC SCRA Protocol Metoprolol Succinate 50 mg 07/31/24 21:00 08/01/24 08:39 Metoprolol Succinate Xl 25 Mg Tabcr PO 08/30/24 20:59 50 mg BID SCAR Administration Ondansetron HCl 4 mg 07/31/24 14:47 Ondansetron Inj 2 Mg/Ml Inj 2 Ml IVP 08/30/24 14:46 Q6H PRN NAUSEA OR VOMITING Protocol Pantoprazole Sodium 40 mg 07/31/24 16:00 08/01/24 08:38 Pantoprazole Inj 40 Mg Vial IVP 08/30/24 15:59 40 mg QDAY SCAR Administration Plan The patient is a 69-year-old male with a previous medical history of hypertension, type 2 diabetes, A-fib on warfarin, status post pacemaker placement, chronic venous insufficiency with chronic lower extremity wounds who was brought to the ED on 07/31/2024 due to the general weakness and 2 episodes of ground-level fall. #General weakness #Ground level falls #Complicated UTI Patient has urinary urgency that started since Thursday. UA showed signs of UTI Plan: - ceftriaxone 1 g qday 07/31/24-current - urine culture pending - PT eval #Chronic hemorrhagic anemia #Suspected GI bleed #Diarrhea FOBT was positive. Patient denies hematemesis, melena, hematochezia. Iron panel showed low iron levels, low iron saturation, low ferritin which could be signs of chronic hemorrhagic anemia. Plan: - Consulted GI - Pantoprazole 40 mg qday - Banatrol packet - warfarin on hold for now - transfuse of Hgb<7 #Type 2 DM Plan: - ISS - glargine 15U - Hypoglycemia protocol #Hypomagnesemia Plan: - replete as needed #Afib of warfarine #Hypertension #Hyperlipidemia Plan: - home flecainide - home metoprolol - held home hydrochlorothiazide - atorvastatin 20 mg qday - warfarin on hold for now #Anxiety Plan: - home buspar - home xanax in lower dose Health maintenance: FEN: carbohydrate consistent DVT prophylaxis: warfarin on hold for now, therapeutic INR GI prophylaxis: pantoprazole 40 mg qday Dispo: medtele CODE STATUS: Full code Plan of care discussed with attending Dr. Costa, PGY-[address] Gonzalez. Alcira Rizzo MD, PGY 1. Attending Provider Attestation/Addendum I, Diana Costa, DO, attest that I was physically present for the sidhu portions of the service and evaluated the patient with the resident and I reviewed and discussed the case with the resident and agree with the resident's findings and plans of care as documented above Patient states that he continues to have diarrhea with p.o. intake. Started on probiotics. He is otherwise pending endoscopy. Warfarin is on hold due to endoscopy. INR 2.4 after receiving Kcentra. Will f/u with EGD results. Pending urine cultures.
[2024-08-01] MEDS: FUROSEMIDE INJ 10 MG/ML 4ML VIAL 40 MG IVP (10:34)
[2024-08-01] MEDS: Magnesium Sulfate 4 GM Ivpb 4 GM/50 ML BAG IV (10:36)
--- NOTE | 2024-08-01 11:27 | PC.NURSE ---
call to pharmacy, I have no Tambocor
[2024-08-01] MEDS: FLECAINIDE ACET 50 MG TABLET 100 MG PO ×2 (11:42→22:05)
[2024-08-01] MEDS: INSULIN LISPRO (AdmeLOG) 1 UNIT/0.01 ML UNIT SC (12:50)
--- NOTE | 2024-08-01 15:45 | PC.SS ---
rounding note: Patient on i.v. antibiotics. EGD pending
--- NOTE | 2024-08-01 21:10 | SUR.PHASEI ---
pt received from OR in recovery bay 7. pt awake and alert, breathing unlabored 1l nc. v/s stable. report received from Nany PRICE
--- NOTE | 2024-08-01 21:45 | SUR.PHASEI ---
pt awake and alert, breathing unlabored on 1 nc. v/s stable. report called to Marie PRICE. pt will be transferred to room at this time.
[2024-08-01] MEDS: ATORVASTATIN CALCIUM 20 MG TABLET PO (22:06)
[2024-08-01] MEDS: INSULIN GLARGINE (Lantus) 5 UNIT/0.05 ML (PER 5 UNITS) 15 UNIT SC (22:07)
[2024-08-02] VITALS (13 sets, daily range): BP systolic 109–141; BP diastolic 66–80; PULSE 75–99; RESP 16–19; TEMP 36.1–37.2; O2SAT 9–98
[2024-08-02 05:33] LABS: Basophils # (Auto) 0.1 Thou/mm3 (0.0-0.2); Basophils % (Auto) 1 % (0-2.5); Eosinophils # (Auto) 0.2 Thou/mm3 (0.0-0.5); Eosinophils % (Auto) 3 % (0-10); Hematocrit 26.5 % (41.0-53.0); Immature Granulocytes % (Auto) 0 % (0-0); Immature Granulocytes Auto 0.03 Thou/mm3 (0.00-0.00); Lymphocytes # (Auto) 1.3 Thou/mm3 (1.0-4.8); Lymphocytes % (Auto) 20 % (10-50); Mean Corpuscular HGB Conc 30.6 g/dl (31.0-37.0); Mean Corpuscular Hemoglobin 22.8 pg (25.0-35.0); Mean Corpuscular Volume 75 fL (80-100); Monocytes # (Auto) 1.4 Thou/mm3 (0.0-0.8); Monocytes % (Auto) 20 % (0-12); Neutrophils # (Auto) 3.8 Thou/mm3 (1.8-7.7); Neutrophils % (Auto) 56 % (37-80); Nucleated Red Blood Cell % 0 /100 WBC (0); Platelet Count 271 Thou/mm3 (140-440); RDW Standard Deviation 50.9 fL (35.1-43.9); Red Blood Count 3.55 Miln/mm3 (4.50-5.90); White Blood Count 6.8 Thou/mm3 (3.8-10.6)
[2024-08-02] MEDS: BusPIRone HCL 5 MG TABLET 10 MG PO ×3 (05:38→21:06)
[2024-08-02 05:44] LABS: Hemoglobin 8.1 g/dL (13.5-16.0)
[2024-08-02 06:08] LABS: Alanine Aminotransferase 23 U/L (10-49); Albumin, Serum 3.6 gm/dL (3.4-4.8); Albumin/Globulin Ratio 1.8 (1.2-2.2); Alkaline Phosphatase 75 U/L (46-116); Anion Gap 12 (7-16); BUN/Creatinine Ratio 20 Ratio (12-20); Bilirubin,Total 0.6 mg/dL (0.3-1.2); Blood Urea Nitrogen 20 mg/dL (9-23); Calcium 8.1 mg/dL (8.3-10.6); Calcium (Corrected) 8.4 mg/dL (8.5-10.1); Carbon Dioxide 28.9 mMol/L (20.0-31.0); Chloride 104 mMol/L (98-107); Estimated Creatinine Clearance 128.5 mL/min (>60); Glucose 147 mg/dL (74-106); Magnesium 1.8 mg/dL (1.6-2.6); Osmolality,Calculated 294 (275-295); Phosphorous 3.8 mg/dL (2.4-5.1); Potassium 4.2 mMol/L (3.4-5.1); Sodium 145 mMol/L (136-145); Total Protein 5.6 gm/dL (5.7-8.2); eGFR > 60 See Note
[2024-08-02] MEDS: METOPROLOL SUCCINATE XL 25 MG TABCR 50 MG PO ×2 (09:02→21:06)
[2024-08-02] MEDS: PANTOPRAZOLE 40 MG TABLET PO (09:03)
[2024-08-02] MEDS: ALPRazoLAM 0.25 MG TABLET 0.5 MG PO ×2 (09:03→21:06)
[2024-08-02] MEDS: cefTRIAXone/D5w 1gm IV premix 1 GM/50 ML BAG IV (09:03)
[2024-08-02] MEDS: FLECAINIDE ACET 50 MG TABLET 100 MG PO ×2 (09:03→21:05)
[2024-08-02 10:00] LABS: INR 1.5 (0.9-1.3); Prothrombin Time 15.6 Seconds (9.0-12.2)
--- NOTE | 2024-08-02 10:36 | XR_ITS ---
Examination: CT abdomen and pelvis without contrast. Coronal 3-D reconstructions. Sagittal 2-D reconstructions. Date and time of exam:August 03, 2019 5:16 PM INDICATIONS: Bilateral flank pain today CTDI: vol (mGy): 23.4 DLP: (mGycm): 1879 Technique: Axial images of the abdomen have been obtained, 3 mm slice thickness Intravenous contrast material has not been administered. Low dose protocols were performed. One or more of the following dose reduction techniques were used; automated exposure control, adjustment of the mA and/or KV according to patient size, use of iterative reconstruction technique. Findings: Mild pneumonia left base Minimal right mild left pleural fluid No liver splenic lesion Absent gallbladder No pancreatic or adrenal mass Perinephric stranding No renal or ureteral calculi, no hydronephrosis Aorta normal size Increased density in the subcutaneous fatty tissue left lateral abdominal wall, for instance axial image 188 No bowel obstruction Normal appendix Urinary bladder is contracted around a [place] catheter with prominent urinary bladder wall thickening up to 20 mm with pericystic inflammatory change No prostatomegaly IMPRESSION: Mild pneumonia left base Prominent cellulitis pattern in the subcutaneous fatty tissue left lateral abdominal wall without definite abscess, recommend ultrasound soft tissue left lateral abdominal wall Marked thickening of urinary bladder wall, differential would include cystitis Perinephric stranding, consider urinary tract infection No renal or ureteral calculi
--- NOTE | 2024-08-02 11:10 | ESPR_ITS ---
<Statement entered by Dennis Gonzalez MD - 08/03/24 02:17> I discussed with and supervised the business analyst intern physician involved in the care of this patient. Patient assessment and plan was discussed with entire medicine team, including my attending. I agree with the assessment and plan as documented by business analyst intern doctor. Patient care was discussed with my attending physician Dr.Lau Dennis Gonzalez, PGY-2 Documentation for date of: 08/02/24 Subjective Subjective Interval history: Patient was seen and examined by the bedside. No acute overnight events. Patient is afebrile, reports feeling better, abdominal pain has improved, denies diarrhea. Continues to have burning in his urethra. Urine grew P. mirabilis, UA showed crystal. Will order abdominal/pelvis CT for nephlithiasis work up. CT abd/pel was negative for nephrolithiasis, showed bladder thickening, increased density in the subcutaneous fatty tissue left lateral abdominal wall. Patient denies pain in the abdomen, denies recent traumas. Family reports that they noticed left abdominal firmness in April 2024. Patient himself is not sure of he had trauma, but allows the possibility of it happening. Will monitor for signs of bleeding and if negative, will resume warfarin tomorrow per GI recs. Exam Vital Signs Temp Pulse Resp BP Pulse Ox O2 Del Method O2 Flow Rate 98.9 F 75 16 141/79 H 95 Nasal Cannula 1 08/02/24 07:30 08/02/24 09:46 08/02/24 07:30 08/02/24 09:03 08/02/24 07:30 08/02/24 04:00 08/02/24 04:00 Narrative Exam Gen: Well-developed and well-nourished. HEENT: NCAT, PERRLA, EOMI, MMM, anicteric conjunctivae. CVS: normal S1 and S2. RRR. No M/R/G. Resp: CTA B/L. No rhonchi, rales, crackles or wheezing. Abd: soft, diffusely tender, distended (due to habitus). Left abdominal area soft tissue slightly more firm to the palpation, painless, skin unremarkable. BS+ in all 4 quadrants. MSK: Bilateral chronic venous stasis dermatitis. Left lower extremity wound. Neuro: CN II-XII grossly intact. Strength 5/5 in BUE & BLE. Alert and oriented x3. Psych: appropriate mood and affect. Objective Labs 08/03/24 05:47 08/03/24 05:47 Labs: Laboratory Results - last 24 hr 08/02/24 08/02/24 04:32 08:50 WBC 6.8 RBC 3.55 L Hgb 8.1 L Hct 26.5 L MCV 75 L MCH 22.8 L MCHC 30.6 L RDW Std Deviation 50.9 H Plt Count 271 Neut % (Auto) 56 Lymph % (Auto) 20 [place] % (Auto) 20 H Eos % (Auto) 3 Baso % (Auto) 1 Neut # (Auto) 3.8 Lymph # (Auto) 1.3 [place] # (Auto) 1.4 H Eos # (Auto) 0.2 Baso # (Auto) 0.1 Immature Gran # (Auto) 0.03 H Absolute Nucleated RBC 0.00 Immature Gran % 0 Nucleated RBC % 0 PT 15.6 H D INR 1.5 H Sodium 145 Potassium 4.2 Chloride 104 Carbon Dioxide 28.9 Anion Gap 12 BUN 20 Creatinine 1.0 Estim Creat Clear Calc 128.5 eGFR > 60 BUN/Creatinine Ratio 20 Glucose 147 H Calculated Osmolality 294 Calcium 8.1 L Corrected Calcium 8.4 L Phosphorus 3.8 Magnesium 1.8 Total Bilirubin 0.6 ALT 23 Alkaline Phosphatase 75 Total Protein 5.6 L Albumin 3.6 Globulin 2.0 L Albumin/Globulin Ratio 1.8 Quality Measures Quality Measures VTE prophylaxis Advance care planning discussed with:: patient Assessment & Plan Assessment Current Active Medications: Generic Name Dose Route Start Last Admin Trade Name Freq PRN Reason Stop Dose Admin Acetaminophen 650 mg 07/31/24 14:47 Acetaminophen 325 Mg Tablet PO 08/30/24 14:46 Q6H PRN Fever >100.3 or pain Alprazolam 0.5 mg 07/31/24 21:00 08/02/24 09:03 Alprazolam 0.25 Mg Tablet PO 08/05/24 20:59 0.5 mg BID SCAR Administration Atorvastatin Calcium 20 mg 07/31/24 21:00 08/01/24 22:06 Atorvastatin Calcium 20 Mg Tablet PO 08/30/24 20:59 20 mg HS SCAR Administration Buspirone HCl 10 mg 07/31/24 22:00 08/02/24 05:38 Buspirone Hcl 5 Mg Tablet PO 08/30/24 21:59 10 mg TID SCAR Administration Dextrose 25 ml 07/31/24 14:50 Dextrose 50%-Water Inj 50 Ml Syringe IV 08/30/24 14:49 Q15MIN PRN BG 50-70 responsive npo pt Dextrose 50 ml 07/31/24 14:50 Dextrose 50%-Water Inj 50 Ml Syringe IV 08/30/24 14:49 Q15MIN PRN BG <50 OR BG <70 & pt unresponsive Flecainide Acetate 100 mg 07/31/24 21:00 08/02/24 09:03 Flecainide Acet 50 Mg Tablet PO 08/30/24 20:59 100 mg BID SCAR Administration Glucagon 1 mg 07/31/24 14:50 Glucagon Inj 1 Mg Vial IM Q15MIN PRN BG <70, and no IV access Ceftriaxone Sodium/Dextrose 1 gm in 50 mls @ 100 mls/hr 08/01/24 09:00 08/02/24 09:03 Rocephin/D5w 1gm Iv Premix IV 08/08/24 08:59 100 mls/hr QDAY SCAR Administration Insulin Glargine 15 unit 07/31/24 21:00 08/01/24 22:07 Insulin Glargine (Lantus) 5 Unit/0.05 Ml (Per 5 Units) SC 08/30/24 20:59 15 unit HS SCAR Administration Insulin Human Lispro 0 unit 07/31/24 17:00 08/01/24 18:23 Insulin Lispro (Admelog) 1 Unit/0.01 Ml Unit SC 08/30/24 16:59 Not Given AC [facility] Protocol Metoprolol Succinate 50 mg 07/31/24 21:00 08/02/24 09:02 Metoprolol Succinate Xl 25 Mg Tabcr PO 08/30/24 20:59 50 mg BID SCAR Administration Ondansetron HCl 4 mg 07/31/24 14:47 Ondansetron Inj 2 Mg/Ml Inj 2 Ml IVP 08/30/24 14:46 Q6H PRN NAUSEA OR VOMITING Protocol Pantoprazole Sodium 40 mg 08/02/24 09:00 08/02/24 09:03 Pantoprazole 40 Mg Tablet PO 09/01/24 08:59 40 mg QDAY SCAR Administration Plan The patient is a 69-year-old male with a previous medical history of hypertension, type 2 diabetes, A-fib on warfarin, status post pacemaker placement, chronic venous insufficiency with chronic lower extremity wounds who was brought to the ED on 07/31/2024 due to the general weakness and 2 episodes of ground-level fall. #General weakness #Ground level falls #Complicated UTI Patient has urinary urgency that started since Thursday. UA showed signs of UTI Plan: - ceftriaxone 1 g qday 07/31/24-current - urine culture grew P. mirabilis, sensitive to Ceftriaxone - PT eval #Chronic hemorrhagic anemia #Suspected GI bleed #Diarrhea FOBT was positive. Patient denies hematemesis, melena, hematochezia. Iron panel showed low iron levels, low iron saturation, low ferritin which could be signs of chronic hemorrhagic anemia. Plan: - Consulted GI - Pantoprazole 40 mg qday - Banatrol packet - warfarin on hold for now - iron supplements on discharge - transfuse of Hgb<7 #Type 2 DM Plan: - ISS - glargine 15U - Hypoglycemia protocol #Hypomagnesemia Plan: - replete as needed #Afib of warfarine #Hypertension #Hyperlipidemia Plan: - home flecainide - home metoprolol - held home hydrochlorothiazide - atorvastatin 20 mg qday - warfarin on hold for now #Anxiety Plan: - home buspar - home xanax in lower dose Health maintenance: FEN: diabetic clear liquis, will advance as tolerated DVT prophylaxis: scds GI prophylaxis: pantoprazole 40 mg qday Dispo: medtele CODE STATUS: Full code Plan of care discussed with attending Dr. Costa, PGY-[address] Gonzalez. Alcira Rizzo MD, PGY 1. Attending Provider Attestation/Addendum Liseth, Diana Costa DO, attest that I was physically present for the sidhu portions of the service and evaluated the patient with the resident and I reviewed and discussed the case with the resident and agree with the resident's findings and plans of care as documented above Patient seen and eval this a.m. He states that he is feeling better today. No acute events overnight. He underwent endoscopy yesterday during which gastric polyps were removed. Some polyps appeared ulcerated. Patient recommended to follow-up with PCP regarding pathology. Patient can be started on warfarin tomorrow as per GI recommendations. Will follow-up with H&H. Urine culture positive for Proteus mirabilis that is pansensitive. Continue with Rocephin. Will order a CT abdomen pelvis to rule out any renal stones due to UTI and crystals found on UA. Patient pending physical therapy evaluation. Patient may need SNF versus home health.
--- NOTE | 2024-08-02 12:15 | PC.SS ---
Ben Miller is a 69-year-old male admitted to [facility] for UTI. SS conducted bedside contact with the patient to complete initial assessment and to discuss discharge planning. Role and reason explained. Patient confirmed demographic information. Pt reports he lives alone. Patient identifies his sister Stephanie Desai [phone] as his surrogate decision maker. Pt states he is able to complete all ADL?s independent. Pt does not possesses any DME. Pts PCP is Steven ([facility] visit last week). Pharmacy of choice is [facility]. Discharge options discussed and the pt wishes to return home, may be open to SNF if needed.? Pt family will be able to transport pt at the time of DC, if not pt does possess [employer] transport coverage. No further intervention required at this time, clinical social work aide would be available to address any further concerns. DC Plan: Home (HH) vs SNF Contact: Stephanie Desai [phone] Address: Confirmed on face sheet PCP: Steven
[2024-08-02] MEDS: INSULIN LISPRO (AdmeLOG) 1 UNIT/0.01 ML UNIT SC ×2 (13:08→18:09)
--- NOTE | 2024-08-02 13:45 | PC.SS ---
SS submitted SNF referral via [facility].
--- NOTE | 2024-08-02 14:53 | PC.SS ---
Rounding: pt on IV ABX
--- NOTE | 2024-08-02 15:02 | PC.PT ---
Patient is safe to stand pivot transfer to a bedside commode with a FWW and 2 staff assist for safety. RN made aware.
--- NOTE | 2024-08-02 19:45 | ESPR_ITS ---
Documentation for date of: 08/02/24 Subjective Subjective Interval history: Patient evaluated Hemoglobin hematocrit 8.1 and 26.5 Upper endoscopy showed large ulcerated gastric polyps requiring endoscopic resection as well as placement of endoclips Start the warfarin tomorrow morning as discussed with the internal medicine team Exam Vital Signs Temp Pulse Resp BP Pulse Ox O2 Del Method O2 Flow Rate 98.2 F 76 16 121/71 96 Nasal Cannula 2 08/02/24 16:00 08/02/24 19:04 08/02/24 16:00 08/02/24 16:00 08/02/24 16:00 08/02/24 12:00 08/02/24 12:00 Objective Labs 08/02/24 04:32 08/02/24 04:32 Labs: Laboratory Results - last 24 hr 08/02/24 08/02/24 04:32 08:50 WBC 6.8 RBC 3.55 L Hgb 8.1 L Hct 26.5 L MCV 75 L MCH 22.8 L MCHC 30.6 L RDW Std Deviation 50.9 H Plt Count 271 Neut % (Auto) 56 Lymph % (Auto) 20 [place] % (Auto) 20 H Eos % (Auto) 3 Baso % (Auto) 1 Neut # (Auto) 3.8 Lymph # (Auto) 1.3 [place] # (Auto) 1.4 H Eos # (Auto) 0.2 Baso # (Auto) 0.1 Immature Gran # (Auto) 0.03 H Absolute Nucleated RBC 0.00 Immature Gran % 0 Nucleated RBC % 0 PT 15.6 H D INR 1.5 H Sodium 145 Potassium 4.2 Chloride 104 Carbon Dioxide 28.9 Anion Gap 12 BUN 20 Creatinine 1.0 Estim Creat Clear Calc 128.5 eGFR > 60 BUN/Creatinine Ratio 20 Glucose 147 H Calculated Osmolality 294 Calcium 8.1 L Corrected Calcium 8.4 L Phosphorus 3.8 Magnesium 1.8 Total Bilirubin 0.6 ALT 23 Alkaline Phosphatase 75 Total Protein 5.6 L Albumin 3.6 Globulin 2.0 L Albumin/Globulin Ratio 1.8 Impressions Impression: Ulcerated large gastric polyp status, post endoscopic resection with placement of endoclips Start warfarin tomorrow morning Assessment & Plan A&P Narrative # Anemia blood loss # FOBT positive Plan Clear liquid diet N.p.o. tomorrow at 10 AM Consent obtained for fiberoptic esophagogastroduodenoscopy with possible biopsy possible therapeutic intervention under intravenous moderate sedation If EGD negative we may or may not consider fiberoptic colonoscopy depending upon his generalized health Other medical problems include Essential hypertension Hyperlipidemia Atrial fibrillation on warfarin Status post placement of a permanent cardiac pacemaker Chronic lower extremity edema with wounds Thank you very much for the opportunity to participate in the care of this patient Time Spent With Patient Time: Total time spent is greater than 50% in coordination of care (as documented) at patient's floor/unit and/or counseling patient:
[2024-08-02] MEDS: ATORVASTATIN CALCIUM 20 MG TABLET PO (21:08)
[2024-08-02] MEDS: INSULIN GLARGINE (Lantus) 5 UNIT/0.05 ML (PER 5 UNITS) 15 UNIT SC (21:08)
[2024-08-03] VITALS (8 sets, daily range): BP systolic 102–122; BP diastolic 66–78; PULSE 61–106; RESP 15–22; TEMP 36.1–36.2; O2SAT 92–97; BMI 45.8
--- NOTE | 2024-08-03 04:05 | PC.NURSE ---
SCDs machine not available, house sup was made aware.
[2024-08-03] MEDS: BusPIRone HCL 5 MG TABLET 10 MG PO ×2 (05:31→14:00)
[2024-08-03 06:22] LABS: Basophils % (Auto) 1 % (0-2.5); Eosinophils # (Auto) 0.3 Thou/mm3 (0.0-0.5); Eosinophils % (Auto) 6 % (0-10); Hematocrit 27.8 % (41.0-53.0); Immature Granulocytes % (Auto) 0 % (0-0); Immature Granulocytes Auto 0.02 Thou/mm3 (0.00-0.00); Lymphocytes # (Auto) 1.2 Thou/mm3 (1.0-4.8); Lymphocytes % (Auto) 23 % (10-50); Mean Corpuscular HGB Conc 28.4 g/dl (31.0-37.0); Mean Corpuscular Hemoglobin 22.8 pg (25.0-35.0); Mean Corpuscular Volume 80 fL (80-100); Monocytes # (Auto) 0.9 Thou/mm3 (0.0-0.8); Monocytes % (Auto) 17 % (0-12); Neutrophils # (Auto) 2.8 Thou/mm3 (1.8-7.7); Neutrophils % (Auto) 53 % (37-80); Nucleated Red Blood Cell % 0 /100 WBC (0); Platelet Count 219 Thou/mm3 (140-440); RDW Standard Deviation 55.4 fL (35.1-43.9); Red Blood Count 3.47 Miln/mm3 (4.50-5.90); White Blood Count 5.3 Thou/mm3 (3.8-10.6)
[2024-08-03 06:24] LABS: Hemoglobin 7.9 g/dL (13.5-16.0)
[2024-08-03 06:35] LABS: Alanine Aminotransferase 21 U/L (10-49); Albumin, Serum 3.6 gm/dL (3.4-4.8); Albumin/Globulin Ratio 1.7 (1.2-2.2); Alkaline Phosphatase 76 U/L (46-116); Anion Gap 9 (7-16); BUN/Creatinine Ratio 14 Ratio (12-20); Bilirubin,Total 0.6 mg/dL (0.3-1.2); Blood Urea Nitrogen 13 mg/dL (9-23); Calcium 8.2 mg/dL (8.3-10.6); Calcium (Corrected) 8.5 mg/dL (8.5-10.1); Chloride 104 mMol/L (98-107); Creatinine (Component) 0.9 mg/dL (0.6-1.3); Estimated Creatinine Clearance 142.8 mL/min (>60); Globulin 2.1 gm/dL (2.3-3.5); Glucose 176 mg/dL (74-106); Magnesium 1.5 mg/dL (1.6-2.6); Osmolality,Calculated 292 (275-295); Potassium 4.2 mMol/L (3.4-5.1); Sodium 145 mMol/L (136-145); Total Protein 5.7 gm/dL (5.7-8.2); eGFR > 60 See Note
[2024-08-03] MEDS: INSULIN LISPRO (AdmeLOG) 1 UNIT/0.01 ML UNIT SC ×3 (07:44→17:16)
[2024-08-03 09:11] LABS: INR 1.3 (0.9-1.3); Prothrombin Time 14.3 Seconds (9.0-12.2)
[2024-08-03] MEDS: cefTRIAXone/D5w 1gm IV premix 1 GM/50 ML BAG IV (09:19)
[2024-08-03] MEDS: FLECAINIDE ACET 50 MG TABLET 100 MG PO (09:19)
[2024-08-03] MEDS: ALPRazoLAM 0.25 MG TABLET 0.5 MG PO (09:20)
[2024-08-03] MEDS: METOPROLOL SUCCINATE XL 25 MG TABCR 50 MG PO (09:20)
[2024-08-03] MEDS: PANTOPRAZOLE 40 MG TABLET PO (09:20)
--- NOTE | 2024-08-03 10:30 | ESPR_ITS ---
Documentation for date of: 08/03/24 Exam Vital Signs Temp Pulse Resp BP Pulse Ox O2 Del Method O2 Flow Rate 97.0 F 106 H 18 102/66 97 Nasal Cannula 2 08/03/24 04:00 08/03/24 09:20 08/03/24 04:00 08/03/24 09:20 08/03/24 04:00 08/02/24 12:00 08/02/24 12:00 Objective Labs 08/03/24 05:47 08/03/24 05:47 Labs: Laboratory Results - last 24 hr 08/03/24 05:47 WBC 5.3 RBC 3.47 L Hgb 7.9 L Hct 27.8 L MCV 80 MCH 22.8 L MCHC 28.4 L RDW Std Deviation 55.4 H Plt Count 219 D Neut % (Auto) 53 Lymph % (Auto) 23 [place] % (Auto) 17 H Eos % (Auto) 6 Baso % (Auto) 1 Neut # (Auto) 2.8 Lymph # (Auto) 1.2 [place] # (Auto) 0.9 H Eos # (Auto) 0.3 Baso # (Auto) 0.0 Immature Gran # (Auto) 0.02 H Absolute Nucleated RBC 0.00 Immature Gran % 0 Nucleated RBC % 0 PT 14.3 H INR 1.3 Sodium 145 Potassium 4.2 Chloride 104 Carbon Dioxide 32.0 H Anion Gap 9 BUN 13 Creatinine 0.9 Estim Creat Clear Calc 142.8 eGFR > 60 BUN/Creatinine Ratio 14 Glucose 176 H Calculated Osmolality 292 Calcium 8.2 L Corrected Calcium 8.5 Phosphorus 3.0 Magnesium 1.5 L Total Bilirubin 0.6 ALT 21 Alkaline Phosphatase 76 Total Protein 5.7 Albumin 3.6 Globulin 2.1 L Albumin/Globulin Ratio 1.7 Assessment & Plan A&P Narrative # Anemia blood loss # FOBT positive Plan Clear liquid diet N.p.o. tomorrow at 10 AM Consent obtained for fiberoptic esophagogastroduodenoscopy with possible biopsy possible therapeutic intervention under intravenous moderate sedation If EGD negative we may or may not consider fiberoptic colonoscopy depending upon his generalized health Other medical problems include Essential hypertension Hyperlipidemia Atrial fibrillation on warfarin Status post placement of a permanent cardiac pacemaker Chronic lower extremity edema with wounds Thank you very much for the opportunity to participate in the care of this patient Time Spent With Patient Time: Total time spent is greater than 50% in coordination of care (as documented) at patient's floor/unit and/or counseling patient:
[2024-08-03] MEDS: WARFARIN 5 MG TABLET PO (11:38)
--- NOTE | 2024-08-03 12:02 | ESPR_ITS ---
<Statement entered by Dennis Gonzalez MD - 08/03/24 22:38> I discussed with and supervised the buyer intern physician involved in the care of this patient. Patient assessment and plan was discussed with entire medicine team, including my attending. I agree with the assessment and plan as documented by buyer intern doctor. Patient care was discussed with my attending physician Dr. Igor Gonzalez, PGY-2 Documentation for date of: 08/03/24 Subjective Subjective Interval history: The patient is a 69-year-old male with a previous medical history of hypertension, hyperlipidemia, type 2 diabetes, A-fib on warfarin status post pacemaker placement, chronic venous insufficiency with chronic lower extremity wounds, morbid obesity who was brought to the ED on 07/31/2024 due to general weakness, ground-level falls, burning with urination, diarrhea. In the ED he was hemodynamically stable, afebrile, saturating well on room air. Labs were significant for hemoglobin 8.1, INR was 4.0. UA was positive for signs of UTI. Chest x-ray showed mild to moderate. CHF. EKG showed ventricular paced seen. FOBT was positive patient was admitted for complicated UTI and suspected GI bleeding workup. He was started on antibiotics, underwent EGD where he found to have ulcerated polyps which were excised and sent to pathology. Abdominal pelvis CT showed signs of bladder inflammation. Physical therapy evaluated him, recommended SNF placement. He was seen at the bedside and medically cleared for discharge to SNF on 08/03/2024. Hospital diagnoses: Discharge recommednations: Plan of care discussed with attending Dr. Costa, PGY-[address] Gonzalez. Alcira Rizzo MD, PGY 1. Exam Vital Signs Temp Pulse Resp BP Pulse Ox O2 Del Method O2 Flow Rate 97.1 F 106 H 18 102/66 92 L Nasal Cannula 2 08/03/24 08:00 08/03/24 09:20 08/03/24 08:00 08/03/24 09:20 08/03/24 08:00 08/02/24 12:00 08/02/24 12:00 Narrative Exam Gen: Well-developed and well-nourished. HEENT: NCAT, PERRLA, EOMI, MMM, anicteric conjunctivae. CVS: normal S1 and S2. RRR. No M/R/G. Resp: CTA B/L. No rhonchi, rales, crackles or wheezing. Abd: soft, diffusely tender, distended (due to habitus). Left abdominal area soft tissue slightly more firm to the palpation, painless, skin unremarkable. BS+ in all 4 quadrants. MSK: Bilateral chronic venous stasis dermatitis. Left lower extremity wound. Neuro: CN II-XII grossly intact. Strength 5/5 in BUE & BLE. Alert and oriented x3. Psych: appropriate mood and affect. Objective Labs 08/03/24 05:47 08/03/24 05:47 Labs: Laboratory Results - last 24 hr 08/03/24 05:47 WBC 5.3 RBC 3.47 L Hgb 7.9 L Hct 27.8 L MCV 80 MCH 22.8 L MCHC 28.4 L RDW Std Deviation 55.4 H Plt Count 219 D Neut % (Auto) 53 Lymph % (Auto) 23 [place] % (Auto) 17 H Eos % (Auto) 6 Baso % (Auto) 1 Neut # (Auto) 2.8 Lymph # (Auto) 1.2 [place] # (Auto) 0.9 H Eos # (Auto) 0.3 Baso # (Auto) 0.0 Immature Gran # (Auto) 0.02 H Absolute Nucleated RBC 0.00 Immature Gran % 0 Nucleated RBC % 0 PT 14.3 H INR 1.3 Sodium 145 Potassium 4.2 Chloride 104 Carbon Dioxide 32.0 H Anion Gap 9 BUN 13 Creatinine 0.9 Estim Creat Clear Calc 142.8 eGFR > 60 BUN/Creatinine Ratio 14 Glucose 176 H Calculated Osmolality 292 Calcium 8.2 L Corrected Calcium 8.5 Phosphorus 3.0 Magnesium 1.5 L Total Bilirubin 0.6 ALT 21 Alkaline Phosphatase 76 Total Protein 5.7 Albumin 3.6 Globulin 2.1 L Albumin/Globulin Ratio 1.7 Quality Measures Quality Measures VTE prophylaxis Advance care planning discussed with:: patient Assessment & Plan Assessment Current Active Medications: Generic Name Dose Route Start Last Admin Trade Name Freq PRN Reason Stop Dose Admin Acetaminophen 650 mg 07/31/24 14:47 Acetaminophen 325 Mg Tablet PO 08/30/24 14:46 Q6H PRN Fever >100.3 or pain Alprazolam 0.5 mg 07/31/24 21:00 08/03/24 09:20 Alprazolam 0.25 Mg Tablet PO 08/05/24 20:59 0.5 mg BID SCAR Administration Atorvastatin Calcium 20 mg 07/31/24 21:00 08/02/24 21:08 Atorvastatin Calcium 20 Mg Tablet PO 08/30/24 20:59 20 mg HS SCAR Administration Buspirone HCl 10 mg 07/31/24 22:00 08/03/24 05:31 Buspirone Hcl 5 Mg Tablet PO 08/30/24 21:59 10 mg TID SCAR Administration Dextrose 25 ml 07/31/24 14:50 Dextrose 50%-Water Inj 50 Ml Syringe IV 08/30/24 14:49 Q15MIN PRN BG 50-70 responsive npo pt Dextrose 50 ml 07/31/24 14:50 Dextrose 50%-Water Inj 50 Ml Syringe IV 08/30/24 14:49 Q15MIN PRN BG <50 OR BG <70 & pt unresponsive Flecainide Acetate 100 mg 07/31/24 21:00 08/03/24 09:19 Flecainide Acet 50 Mg Tablet PO 08/30/24 20:59 100 mg BID SCAR Administration Glucagon 1 mg 07/31/24 14:50 Glucagon Inj 1 Mg Vial IM Q15MIN PRN BG <70, and no IV access Ceftriaxone Sodium/Dextrose 1 gm in 50 mls @ 100 mls/hr 08/01/24 09:00 08/03/24 09:19 Rocephin/D5w 1gm Iv Premix IV 08/08/24 08:59 100 mls/hr QDAY SCAR Administration Insulin Glargine 15 unit 07/31/24 21:00 08/02/24 21:08 Insulin Glargine (Lantus) 5 Unit/0.05 Ml (Per 5 Units) SC 08/30/24 20:59 15 unit HS SCAR Administration Insulin Human Lispro 0 unit 07/31/24 17:00 08/03/24 11:37 Insulin Lispro (Admelog) 1 Unit/0.01 Ml Unit SC 08/30/24 16:59 2 unit AC SCAR Administration Protocol Metoprolol Succinate 50 mg 07/31/24 21:00 08/03/24 09:20 Metoprolol Succinate Xl 25 Mg Tabcr PO 08/30/24 20:59 50 mg BID SCAR Administration Ondansetron HCl 4 mg 07/31/24 14:47 Ondansetron Inj 2 Mg/Ml Inj 2 Ml IVP 08/30/24 14:46 Q6H PRN NAUSEA OR VOMITING Protocol Pantoprazole Sodium 40 mg 08/02/24 09:00 08/03/24 09:20 Pantoprazole 40 Mg Tablet PO 09/01/24 08:59 40 mg QDAY [facility] Administration Pharmacy Consult 1 each 08/03/24 09:00 08/03/24 09:30 Pharmacy To Dose Warfarin PO 09/02/24 08:59 Not Given QDAY SCAR Plan The patient is a 69-year-old male with a previous medical history of hypertension, type 2 diabetes, A-fib on warfarin, status post pacemaker placement, chronic venous insufficiency with chronic lower extremity wounds who was brought to the ED on 07/31/2024 due to the general weakness and 2 episodes of ground-level fall. #General weakness #Ground level falls #Complicated UTI Patient has urinary urgency that started since Thursday. UA showed signs of UTI Plan: - ceftriaxone 1 g qday 07/31/24-current - urine culture grew P. mirabilis, sensitive to Ceftriaxone - PT eval #Chronic hemorrhagic anemia #Upper GI bleed #Gastric polyps #Diarrhea, resolved FOBT was positive. Patient denies hematemesis, melena, hematochezia. Iron panel showed low iron levels, low iron saturation, low ferritin which could be signs of chronic hemorrhagic anemia. During EGD abdominal polyps were excised, pending histology results. 08/03/24: hgb is stable. Plan: - Consulted GI - Pantoprazole 40 mg qday - Banatrol packet - resumed warfarin - iron supplements on discharge - transfuse of Hgb<7 - follow-up with results of biopsy outpatient #Type 2 DM Plan: - ISS - glargine 15U - Hypoglycemia protocol #Hypomagnesemia Plan: - replete as needed #Afib of warfarine #Hypertension #Hyperlipidemia Plan: - home flecainide - home metoprolol - held home hydrochlorothiazide - atorvastatin 20 mg qday - resumed warfarin, pharmacy to dose #Anxiety Plan: - home buspar - home xanax in lower dose Health maintenance: FEN: PUD DVT prophylaxis: warfarin, scds GI prophylaxis: pantoprazole 40 mg qday Dispo: medtele CODE STATUS: Full code Plan of care discussed with attending Dr. Costa, PGY-[address] Gonzalez. Alcira Rizzo MD, PGY 1. Attending Provider Attestation/Addendum I, Diana Costa DO, attest that I was physically present for the sidhu portions of the service and evaluated the patient with the resident and I reviewed and discussed the case with the resident and agree with the resident's findings and plans of care as documented above Patient seen and evaluated this AM. Patient and sister state that he is doing well. Will restart patient on warfarin today. Pending SNF placement. Remove Hennessy catheter. Continue with PO antibiotics to complete 1 week of treatment. Anticipate DC wihtin next 24hrs
[2024-08-03] MEDS: Magnesium Sulfate 4 GM Ivpb 4 GM/50 ML BAG IV (14:00)
--- NOTE | 2024-08-03 14:50 | PC.SS ---
Addendum entered by Radhika Bianchi 08/03/24 16:12: SS set up gurney transport for 6p.m. via [employer] with a reference # [id number]. SS updated patient's height and weight to prepare for transport. Noa @ [facility] is aware. Patient was upated as well as sister. Floor nurse aware of scheduled time for belt picker. PASRR sent to facility via inter transfer. D/c orders were faxed to nursing unit at facility per Noa's request. Original Note: Follow up note: SS spoke to patient who is agreeable to SnF short term. Patient preference is [facility]. D/c set up for today. SS contacting [facility] for transportation assistance.
--- NOTE | 2024-08-03 16:45 | ESDS_ITS ---
<Statement entered by Dennis Gonzalez MD - 08/03/24 22:10> I discussed with and supervised the audit intern physician involved in the care of this patient. Patient assessment and plan was discussed with entire medicine team, including my attending. I agree with the assessment and plan as documented by audit intern doctor. Patient care was discussed with my attending physician Dr. Igor Gonzalez, PGY-2 <Statement entered by Diana Costa DO - 08/03/24 16:50> I, Diana Costa DO, attest that I was physically present for the sidhu portions of the service and evaluated the patient with the resident and I reviewed and discussed the case with the resident and agree with the resident's findings and plans of care as documented above Planned Discharge Date 08/03/24 DS: Providers Provider Date of admission: 07/31/24 14:47 Primary care physician: Dre Harris MD Admitting Provider: Diana Costa DO Attending Provider on Admission: Diana Costa DO Consults: 07/31/24 14:54 Consult to Gastroenterology Routine Comment: GI bleed susp Consulting Provider: Mac Schroeder 07/31/24 15:53 Referral Wound Care Routine Comment: chronic venous insufficiency, extremity wound 07/31/24 17:12 Referral Physical Therapy Routine Comment: Physician Instructions: 07/31/24 17:59 Health [facility] Referral - Knowledge Deficit Routine Comment: Positive screening for knowledge deficit needs. Attending Provider on DC: Alcira Rizzo MD Discharging Provider: Alcira Rizzo MD DS: Diagnosis Problem List Completed Was Problem List Reviewed/Reconciled?: Yes Hospital Course Hospital Course Hospital course: The patient is a 69-year-old male with a previous medical history of hypertension, hyperlipidemia, type 2 diabetes, A-fib on warfarin status post pacemaker placement, chronic venous insufficiency with chronic lower extremity wounds, morbid obesity who was brought to the ED on 07/31/2024 due to general weakness, ground-level falls, burning with urination, diarrhea. In the ED he was hemodynamically stable, afebrile, saturating well on room air. Labs were significant for hemoglobin 8.1, INR was 4.0. UA was positive for signs of UTI. Chest x-ray showed mild to moderate. CHF. EKG showed ventricular paced seen. FOBT was positive patient was admitted for complicated UTI and suspected GI bleeding workup. He was started on antibiotics, underwent EGD where he found to have ulcerated polyps which were excised and sent to pathology. Abdominal pelvis CT showed signs of bladder inflammation. Physical therapy evaluated him, recommended SNF placement. He was seen at the bedside and medically cleared for discharge to SNF on 08/03/2024. Hospital diagnoses: #General weakness #Ground level falls #Complicated UTI 2/2 Proteus mirabilis #Chronic hemorrhagic anemia #Upper GI bleed #Acute blood loss anemia #Gastric polyps #Diarrhea, resolved #Type 2 DM #Hypomagnesemia #Afib of warfarin #Hypertension #Hyperlipidemia #Anxiety Discharge recommendations: - Follow-up with your PCP in 1 week - Follow-up with results of the biopsy with your PCP - Take Cefuroxime 250 mg two time a day for 3 days - Do not continue to take trimetoprime-sulfamethoxazole - Follow-up with urologist outpatient - Stop taking Pioglitazone 45 mg - Stop taking pantoprazole 40 mg daily - Continue with the rest of your medications as prescribed - If your symptoms worsen, come to the ED or call 911 Follow up at [facility] as scheduled. [address] [facility]. Call [phone] to reschedule appointment. Wound care to left inner ankle: cleanse leg with normal saline, pat dry, apply aquaphor to leg. Apply hydrofera blue ready foam over DM ulcer than apply 2 layer zinc compression wraps weekly Plan of care discussed with attending Dr. Costa, PGY-[address] Gonzalez. Alcira Rizzo MD, PGY 1. Time Spent with Patient Time attestation: Total time spent providing and/or coordinating discharge services: Time spent: Greater than 30 minutes Exam Vital Signs Temp Pulse Resp BP Pulse Ox O2 Del Method O2 Flow Rate 97.0 F 76 22 H 114/68 95 Nasal Cannula 2 08/03/24 12:00 08/03/24 15:38 08/03/24 12:00 08/03/24 12:00 08/03/24 12:00 08/03/24 12:00 08/02/24 12:00 Narrative Exam Gen: Well-developed and well-nourished. HEENT: NCAT, PERRLA, EOMI, MMM, anicteric conjunctivae. CVS: normal S1 and S2. RRR. No M/R/G. Resp: CTA B/L. No rhonchi, rales, crackles or wheezing. Abd: soft, diffusely tender, distended (due to habitus). Left abdominal area soft tissue slightly more firm to the palpation, painless, skin unremarkable. BS+ in all 4 quadrants. MSK: Bilateral chronic venous stasis dermatitis. Left lower extremity wound. Neuro: CN II-XII grossly intact. Strength 5/5 in BUE & BLE. Alert and oriented x3. Psych: appropriate mood and affect. Discharge Plan Plan Patient Disposition: Xfer Skilled Nsg Fac (SNF) Patient condition on transfer: Stable Care Plan Goals: Discharge recommendations: - Follow-up with your PCP in 1 week - Follow-up with results of the biopsy with your PCP - Take Cefuroxime 250 mg two time a day for 3 days - Do not continue to take trimetoprime-sulfamethoxazole - Follow-up with urologist outpatient - Stop taking Pioglitazone 45 mg - Stop taking pantoprazole 40 mg daily - Continue with the rest of your medications as prescribed - If your symptoms worsen, come to the ED or call 911 Follow up at [facility] as scheduled. [address] [facility]. Call [phone] to reschedule appointment. Wound care to left inner ankle: cleanse leg with normal saline, pat dry, apply aquaphor to leg. Apply hydrofera blue ready foam over DM ulcer than apply 2 layer zinc compression wraps weekly Prescriptions/Referrals Prescriptions/Med Rec: New cefuroxime axetil 250 mg tablet 250 mg PO BID 3 Days Qty: 6 0RF Rx Instructions: Take one tablet two times a day for 3 days Continued dexlansoprazole [Dexilant] 30 MG capsule,biphase delayed releas 30 mg PO QDAY Qty: 0 ferrous sulfate [FeroSul] 325 mg (65 mg iron) tablet 325 mg PO QDAY warfarin 5 mg Tablet 5 mg PO QDAY Patient Comments: whole on even days, half on odd days flecainide 100 mg Tablet 100 mg PO BID triamterene-hydrochlorothiazid 37.5-25 mg Tablet 1 tab PO BID insulin degludec [Tresiba U-100 Insulin] 100 unit/mL Solution 15 unit subcut Q24H alprazolam 1 mg Tablet 1 mg PO TID metoprolol succinate 50 mg Tablet Extended Release 24 Hr 50 mg PO BID lovastatin 40 mg Tablet 40 mg PO QDAY buspirone 10 mg Tablet 10 mg PO TID Discontinued pioglitazone [Actos] 45 MG tablet 45 mg PO DAILY Qty: 0 pantoprazole 40 mg tablet,delayed release (DR/EC) 40 mg PO DAILY sulfamethoxazole-trimethoprim 800-160 mg tablet 1 tab PO BID Referrals: Dre Harris MD [Primary Care Provider] - Patient/Caregiver Discharge Instructions Other Discharge Activity Instructions:: Pharmacy to dose warfarin Education Materials: ED Upper GI Bleeding (Stable), ED Bladder Infection, Male (Adult) Print Language: Italian Stand Alone Forms: [facility] Award Info., Patient Portal Info Letter Discharge Order Discharge Orders: Discharge (Routine); Ordered 08/03/24 Ordered By: Alcira Rizzo Quality Discharge Quality Measures VTE prophylaxis
== END 2024-08-03 18:11 | disposition skilled nursing facility (03) | DRG 394 ==
LOC: SERX 14:56 → SERHOLD 15:35 → S3SX 16:51
PROVIDERS: Specialist; Admitting Provider Internal Medicine; Emergency Provider Family Medicine; PCP Family Medicine; Visit Provider Internal Medicine
PROC: 0DB68ZX Excision of Stomach, Via Natural or Artificial Opening Endoscopic, Diagnostic (ICD-10-PCS; CPT 43239; principal; 2024-08-01 20:00)
DX: K31.7 Polyp of stomach and duodenum (principal); D62 Acute posthemorrhagic anemia; N39.0 Urinary tract infection, site not specified; Z68.42 Body mass index [BMI] 45.0-49.9, adult; I50.9 Heart failure, unspecified; F41.9 Anxiety disorder, unspecified; I11.0 Hypertensive heart disease with heart failure; E78.5 Hyperlipidemia, unspecified; I48.91 Unspecified atrial fibrillation; E11.9 Type 2 diabetes mellitus without complications; E83.42 Hypomagnesemia; E66.01 Morbid (severe) obesity due to excess calories; I87.2 Venous insufficiency (chronic) (peripheral); B96.4 Proteus (mirabilis) (morganii) as the cause of diseases classified elsewhere; Z79.01 Long term (current) use of anticoagulants; Z95.0 Presence of cardiac pacemaker; Z79.899 Other long term (current) drug therapy; Z79.4 Long term (current) use of insulin; Z79.84 Long term (current) use of oral hypoglycemic drugs
CPT/HCPCS: 36415; 71045; 74176; 80053; 81001; 82728; 83540; 83550; 83735; 83880; 84100; 84484; 85025; 85046; 85610; 85730; 87077; 87086; 87186; 93005; 93225; 96365; 96367; 96372; 96375; 97163; 99285; A4217; A4649; J0696; J1200; J1611; J1815; J1938; J2250; J2470; J3010; J3430; J3475; J3490; J7030; J7050; A9270

== ENCOUNTER 2024-08-03 18:30 | Emergency (ER) | payer MEDICARE, MEDICAID, SELFPAY ==
[2024-08-03 18:38] VITALS: BP 149/79; PULSE 78; RESP 19; TEMP 36.7; O2SAT 92
[2024-08-03 18:46] VITALS: PULSE 70; O2SAT 97; BMI 45.6
--- NOTE | 2024-08-03 19:03 | PD.EDFALL ---
ED Fall Injury RME/HPI General Chief Complaint: Fall Stated Complaint: GROUND LEVEL FALL Time Seen by Provider: 08/03/24 19:08 Arrival date/time: 08/03/24 18:30 RME / HPI RME / HPI Narrative: DR. BERRY MAIN ED EVALUATION: Patient reports to ED c/o of left-sided facial and left foot pain s/p fall x just GRAPE GROWER. Patient was being transported in the parking lot by EMS when the gurney tipped over causing patient to hit his head on the ambulance door and fall to the ground. Patient denies LOC or any other associated symptoms or aggravating factors. No modifying factors, no radiation, no migration. Head pain reported overall. Related Data Home Medications ?Medication ?Instructions ?Recorded ?Confirmed dexlansoprazole 30 mg 30 mg PO QDAY ##0 10/19/13 08/03/24 capsule,biphase delayed release (Dexilant) alprazolam 1 mg tablet 1 mg PO TID 05/27/22 07/31/24 buspirone 10 mg tablet 10 mg PO TID 05/27/22 07/31/24 flecainide 100 mg tablet 100 mg PO BID 05/27/22 07/31/24 insulin degludec 100 unit/mL 15 unit subcut Q24H Hyperglycemia 05/27/22 08/01/24 subcutaneous solution (Tresiba U-100 Insulin) lovastatin 40 mg tablet 40 mg PO QDAY 05/27/22 07/31/24 metoprolol succinate 50 mg 50 mg PO BID 05/27/22 07/31/24 tablet,extended release 24 hr triamterene 37.5 1 tab PO BID 05/27/22 08/01/24 mg-hydrochlorothiazide 25 mg tablet warfarin 5 mg tablet 5 mg PO QDAY 05/27/22 08/01/24 ferrous sulfate 325 mg (65 mg 325 mg PO QDAY 08/01/24 08/02/24 iron) tablet (FeroSul) Previous Rx's ?Medication ?Instructions ?Recorded cefuroxime axetil 250 mg tablet 250 mg PO BID UTI 3 days #6 tabs 08/03/24 Allergies Allergy/AdvReac Type Severity Reaction Status Date / Time No Known Allergies Allergy Verified 05/27/22 14:54 Review of Systems Review of Systems Systems Reviewed: All systems reviewed, normal except as documented Past Medical History Past Medical History CARDIAC: Positive Cardiac Disorders, Cardiac Arrhythmia, Atrial Fibrillation, Hypercholesterolemia, Congestive Heart Failure, Cellulitis and Hypertension GASTROINTESTINAL: Positive Gall Bladder Disease MUSCULOSKELETAL: Positive Arthritis and Scoliosis (per pt) ENDOCRINE: Positive Diabetes Mellitus Type 2 PSYCHO/SOCIAL: Positive Anxiety OTHER HISTORY: Positive Falls and Chicken Pox Family History FAMILY HISTORY: Positive Family Cardiac Disorders and Family Cancer Surgical History SURGICAL: Positive Pacemaker Social History SECOND HAND EXPOSURE: Yes ED Exam Narrative Physical exam: GENERAL APPEARANCE: alert and oriented x 4, well-developed, well-nourished, no acute distress VITALS: All vitals were reviewed and the pulse ox is 92% on room air, which is normal according to my interpretation. HEENT: Normocephalic, mild tenderness to left jaw area; pupils equal, round, reactive to light; EOMI; mucous membranes pink, moist; oropharynx clear NECK: Supple LUNGS: CTABL; no wheezes, no rales, no rhonchi HEART: Regular rate, regular rhythm; normal S1, S2; no murmurs ABDOMEN: non distended; normal BS; soft, no tenderness, no guarding, no rebound; no masses, no organomegaly, no hernia BACK: no CVA tenderness EXTREMITIES: atraumatic; no edema. Abrasion to the top of the left foot 4th digit with some mild bleeding. NEUROLOGIC: awake; alert and oriented x4; cranial nerves II-XII grossly intact; no focal sensory or motor deficits PSYCHIATRIC: appropriate mood and affect SKIN: warm, dry, normal color; no rashes Course Course Course Narrative: 2001: Bedside Glucose Finger-stick: 253 mg/dL. Quality Measures none Orders Category Date Time Status CT cervical spine wo con Stat Exams 08/03/24 20:[address] head/brain wo con Stat Exams 08/03/24 19:58 Completed Acetaminophen Tab [Tylenol ES Tab] Med 08/03/24 19:21 Discontinued 1,000 mg PO X1 ONE Vital Signs Vital signs: Vital Signs Temperature 98.0 F 08/03/24 18:38 Pulse Rate 78 08/03/24 18:38 Respiratory Rate 19 08/03/24 18:38 Blood Pressure 149/79 H 08/03/24 18:38 Pulse Oximetry (%) 92 L 08/03/24 18:38 Oxygen Delivery Method Room Air 08/03/24 18:38 Fall MDM Narrative MDM Narrative:: Scribe Attestation: I, Kait Pham, am scribing for and in the presence of Dr. Berry. Provider Notation: Although this document has been carefully reviewed, there may still be some phonetic and other typographical errors.? These errors are purely grammatical due to imperfections in the software program and should not be construed in any way to? compromise the substance of the patient's medical care during this visit. Patient data External records reviewed:: [facility] previous records (Reviewed prior ED records from 07/31/24. Patient was seen for Acute UTI.), EMS form and Assisted records Clinical information provided by:: patient and EMS Social determinants that could affect healthcare access:: housing (SNF) Patient has the following chronic illnesses:: Cardiac Arrhythmia, Atrial Fibrillation, Hypercholesterolemia, Congestive Heart Failure, Cellulitis, Hypertension, Gall Bladder Disease, Arthritis, Scoliosis, Diabetes Mellitus Type 2, Anxiety How is presenting disease/condition affected by chronic disease/condition?: uneffected by Evaluation data The following diagnostics were reviewed and interpreted by me:: radiology exam(s) Lab and/or radiology exams considered but not ordered:: None Interpretation Summary: RADIOLOGY Head/Brain CT: Patient: VIPUL REAL. Record#: [id number] Birthdate: 1955 Age/Sex: 69 / M Location: [facility] Attending Dr: Ordering Physician: Laurie Berry MD Date of Service: 08/03/24 Procedure(s): CT head/brain wo [facility] Accession Number(s): [id number] cc: Bon Zaragoza MD; NO PRIMARY/FAMILY,PHYSICIAN; Laurie Berry MD~ Examination: CT brain head without contrast. 2-D sagittal coronal reconstructions Date and time of exam:August 03, 2024 2020 hours INDICATIONS: Patient fell today with injury to the head, head pain CTDI: vol (mGy):59 DLP: (mGycm):1206 Technique: Multiple CT axial sections of the brain have been obtained, 5 mm slice thickness. Contrast has not been administered. 2-D sagittal, coronal reconstructions have been obtained Low dose protocols were performed. One or more of the following dose reduction techniques were used; automated exposure control, adjustment of the mA and/or KV according to patient size, use of iterative reconstruction technique. Findings: No significant ventricular enlargement. Intra-axial or extra-axial hemorrhage density is not seen. No mass effect or midline shift Basal cisterns are not remarkable. Fourth ventricle is midline. Cranial vault intact. Impression: Negative for acute hemorrhage, mass effect or midline shift Dictated By: Bon Zaragoza MD Signed By: <Electronically signed by Bon Zaragoza MD in OV> 08/03/24 2044 C-Sp[address]: Patient: VIPUL REAL. Record#: [id number] Birthdate: 1955 Age/Sex: 69 / M Location: [facility] Attending Dr: Ordering Physician: Laurie Berry MD Date of Service: 08/03/24 Procedure(s): CT cervical spine wo con Accession Number(s): [id number] cc: Bon Zaragoza MD; NO PRIMARY/FAMILY,PHYSICIAN; Laurie Berry MD~ Examination: CT cervical spine without contrast 2-D sagittal reconstructions 2-D coronal reconstructions 3-D reconstructions. Exam date and time:11/03/2024 2020 hours INDICATIONS: Patient fell today with injury of the neck, neck pain CTDI:vol (mGy) 11.8 DLP: (mGycm) 252 Technique: Multiple 2 mm axial sections of the cervical spine have been obtained. The coronal and sagittal reconstructions have been obtained. 3-D reconstructions have been obtained. Low dose protocols were performed. One or more of the following dose reduction techniques were used; automated exposure control, adjustment of the mA and/or KV according to patient size, use of iterative reconstruction technique. Findings: Axial sections demonstrate intact base of the skull. C1 exhibit satisfactory relationship to the odontoid. No acute cervical vertebral body fracture seen. Alignment posterior spinous processes satisfactory. Impression: No acute cervical fracture. Dictated By: Bon Zaragoza MD Signed By: <Electronically signed by Bon Zaragoza MD in OV> 08/03/242045 Medications / Prescriptions Medications or Prescriptions considered but not ordered:: None Medication administrations:: Medication Administration History Discontinued Medications Acetaminophen (Acetaminophen 500 Mg Tablet) 1,000 mg PO X1 ONE Stop: 08/03/24 19:22 Last Admin: 08/03/24 19:39 Dose: 1,000 mg Documented By: EF See above if any Consultations Consultation(s) initiated? (list below): No Diagnosis Fall Differential Diagnosis: dislocation of shoulder region, compression fracture and concussion without loss of consciousness Most likely diagnosis given after review of the tests above:: Fall, facial contusion, Abrasion of toe. Admission Indicated Admission indicated?: not indicated Explain why admission is indicated or not indicated:: Patient does not meet admission criteria. Admission Request Was there a request for admission?: No Disposition Plan Disposition Plan: Discharge Discharge Attestation Discharge Attestation: The patient and all family members were given an opportunity to ask questions and understood the discharge instructions. Discharge instructions specifically effects, indications for sooner follow up or return to the emergency department, and the expected course of current diagnosis. Patient condition: Stable Discharge Plan Plan Patient Disposition: HOME (Self Care) Prescriptions/Referrals Prescriptions/Med Rec: No Action dexlansoprazole [Dexilant] 30 MG capsule,biphase delayed releas 30 mg PO QDAY Qty: 0 ferrous sulfate [FeroSul] 325 mg (65 mg iron) tablet 325 mg PO QDAY cefuroxime axetil 250 mg tablet 250 mg PO BID 3 Days Qty: 6 0RF Rx Instructions: Take one tablet two times a day for 3 days warfarin 5 mg Tablet 5 mg PO QDAY Patient Comments: whole on even days, half on odd days flecainide 100 mg Tablet 100 mg PO BID triamterene-hydrochlorothiazid 37.5-25 mg Tablet 1 tab PO BID insulin degludec [Tresiba U-100 Insulin] 100 unit/mL Solution 15 unit subcut Q24H alprazolam 1 mg Tablet 1 mg PO TID metoprolol succinate 50 mg Tablet Extended Release 24 Hr 50 mg PO BID lovastatin 40 mg Tablet 40 mg PO QDAY buspirone 10 mg Tablet 10 mg PO TID Referrals: No Primary/Family,Physician [Primary Care Provider] - In 1 week Problem List Clinical Impression: Fall, Facial contusion, Abrasion of toe Patient/Caregiver Discharge Instructions Education Materials: ED Abrasions, ED Facial Contusion Print Language: Congolese Stand Alone Forms: [facility] Award Info., Patient Portal Info Letter
[2024-08-03] MEDS: ACETAMINOPHEN 500 MG TABLET 1000 MG PO (19:39)
--- NOTE | 2024-08-03 19:58 | XR_ITS ---
Examination: CT brain head without contrast. 2-D sagittal coronal reconstructions Date and time of exam:August 03, 2024 2020 hours INDICATIONS: Patient fell today with injury to the head, head pain CTDI: vol (mGy):59 DLP: (mGycm):1206 Technique: Multiple CT axial sections of the brain have been obtained, 5 mm slice thickness. Contrast has not been administered. 2-D sagittal, coronal reconstructions have been obtained Low dose protocols were performed. One or more of the following dose reduction techniques were used; automated exposure control, adjustment of the mA and/or KV according to patient size, use of iterative reconstruction technique. Findings: No significant ventricular enlargement. Intra-axial or extra-axial hemorrhage density is not seen. No mass effect or midline shift Basal cisterns are not remarkable. Fourth ventricle is midline. Cranial vault intact. Impression: Negative for acute hemorrhage, mass effect or midline shift
--- NOTE | 2024-08-03 20:01 | XR_ITS ---
Examination: CT cervical spine without contrast 2-D sagittal reconstructions 2-D coronal reconstructions 3-D reconstructions. Exam date and time:11/03/2024 2020 hours INDICATIONS: Patient fell today with injury of the neck, neck pain CTDI:vol (mGy) 11.8 DLP: (mGycm) 252 Technique: Multiple 2 mm axial sections of the cervical spine have been obtained. The coronal and sagittal reconstructions have been obtained. 3-D reconstructions have been obtained. Low dose protocols were performed. One or more of the following dose reduction techniques were used; automated exposure control, adjustment of the mA and/or KV according to patient size, use of iterative reconstruction technique. Findings: Axial sections demonstrate intact base of the skull. C1 exhibit satisfactory relationship to the odontoid. No acute cervical vertebral body fracture seen. Alignment posterior spinous processes satisfactory. Impression: No acute cervical fracture.
[2024-08-03 22:17] VITALS: BP 146/63; PULSE 87; RESP 19; O2SAT 94
--- NOTE | 2024-08-03 22:17 | PC.NURSE ---
report called to diane viera via telephone from [facility], [place], operated by [facility]
== END 2024-08-03 22:18 | disposition home or self-care (01) ==
PROVIDERS: Emergency Provider Emergency Medicine
DX: S90.415A Abrasion, left lesser toe(s), initial encounter (principal); S00.83XA Contusion of other part of head, initial encounter; S19.9XXA Unspecified injury of neck, initial encounter; V86.41XA Person injured while boarding or alighting from ambulance or fire engine, initial encounter; W22.8XXA Striking against or struck by other objects, initial encounter; Y92.481 Parking lot as the place of occurrence of the external cause
CPT/HCPCS: 70450; 72125; 99284; A9270

== ENCOUNTER → 2024-11-23 | Outpatient (CLI) | payer MEDICARE, MEDICAID, SELFPAY ==
--- NOTE | 2024-11-23 09:30 | XR_ITS ---
Examination: Venous reflux study Date and time: November 23, 2024, 0919 hours INDICATIONS: Chronic venous hypertension with inflammation leg pain and swelling months TECHNIQUE AND FINDINGS: Sonographic images of the lower extremities with assessment reflux times Positive for nonocclusive DVT in the right superficial femoral proximal to distal, posterior tibial, greater saphenous vein below the knee Positive for nonocclusive thrombus in the left common femoral left peroneal posterior tibial veins as well as greater saphenous below the knee and lesser saphenous No venous reflux IMPRESSION: Extensive nonocclusive DVT as above
== END | disposition home or self-care (01) ==
LOC: CDIM 08:55
PROVIDERS: PCP Family Medicine; Referring Provider Surgery Vascular Surgery; Visit Provider Surgery Vascular Surgery
DX: I82.413 Acute embolism and thrombosis of femoral vein, bilateral (principal); I82.441 Acute embolism and thrombosis of right tibial vein
CPT/HCPCS: 93970

== ENCOUNTER → 2024-12-27 | Outpatient (CLI) | payer MEDICARE, MEDICAID, SELFPAY ==
[2024-12-27 10:41] LABS: Basophils # (Auto) 0.1 Thou/mm3 (0.0-0.2); Basophils % (Auto) 1 % (0-2.5); Eosinophils # (Auto) 0.2 Thou/mm3 (0.0-0.5); Eosinophils % (Auto) 3 % (0-10); Hematocrit 51.6 % (41.0-53.0); Hemoglobin 17.0 g/dL (13.5-16.0); Immature Granulocytes Auto 0.02 Thou/mm3 (0.00-0.00); Lymphocytes # (Auto) 1.6 Thou/mm3 (1.0-4.8); Lymphocytes % (Auto) 24 % (10-50); Mean Corpuscular HGB Conc 32.9 g/dl (31.0-37.0); Mean Corpuscular Hemoglobin 30.2 pg (25.0-35.0); Mean Corpuscular Volume 92 fL (80-100); Monocytes # (Auto) 0.5 Thou/mm3 (0.0-0.8); Monocytes % (Auto) 8 % (0-12); Neutrophils # (Auto) 4.4 Thou/mm3 (1.8-7.7); Neutrophils % (Auto) 65 % (37-80); Nucleated Red Blood Cell # 0.00 Thou/mm3 (0.00-0.00); Nucleated Red Blood Cell % 0 /100 WBC (0); Platelet Count 283 Thou/mm3 (140-440); RDW Standard Deviation 49.8 fL (35.1-43.9); Red Blood Count 5.62 Miln/mm3 (4.50-5.90); White Blood Count 6.8 Thou/mm3 (3.8-10.6)
[2024-12-27 10:57] LABS: Folate 17.48 ng/mL (>5.38); Vitamin B12 791 pg/mL (211-911); Vitamin D 25 Hydroxy Total 32.6 ng/mL (7.3-40.2)
[2024-12-27 11:15] LABS: Alanine Aminotransferase 30 U/L (10-49); Albumin, Serum 4.4 gm/dL (3.4-4.8); Albumin/Globulin Ratio 1.4 (1.2-2.2); Alkaline Phosphatase 84 U/L (46-116); Anion Gap 9 (7-16); Aspartate Amino Transferase 22 U/L (0-34); BUN/Creatinine Ratio 25 Ratio (12-20); Bilirubin,Total 0.6 mg/dL (0.3-1.2); Blood Urea Nitrogen 40 mg/dL (9-23); Calcium 9.9 mg/dL (8.3-10.6); Calcium (Corrected) 9.9 mg/dL (8.5-10.1); Carbon Dioxide 30.4 mMol/L (20.0-31.0); Chloride 101 mMol/L (98-107); Creatinine (Component) 1.6 mg/dL (0.6-1.3); Free T4 (Free Thyroxine) 1.27 ng/dL (0.89-1.76); Globulin 3.2 gm/dL (2.3-3.5); Glucose 217 mg/dL (74-106); Magnesium 2.3 mg/dL (1.6-2.6); Osmolality,Calculated 296 (275-295); Potassium 4.4 mMol/L (3.4-5.1); Sodium 140 mMol/L (136-145); Thyroid Stimulating Hormone 2.57 uIU/mL (0.55-4.78); Total Protein 7.6 gm/dL (5.7-8.2); Uric Acid 6.2 mg/dL (3.7-9.2); eGFR 46 See Note
[2024-12-27 11:15] LABS: Creatinine MALB Rnd Ur 93 mg/dL (30-125)
[2024-12-27 11:33] LABS: Microalbumin Creat Ratio 639 mg/gCrea (<30); Microalbumin, Random Urine 594 mg/L (0-300)
[2024-12-27 12:32] LABS: Glucose Estimated Average 235 mg/dL (80-131); Hemoglobin A1C 9.8 % Hgb (4.8-6.0)
[2024-12-27 12:36] LABS: Cardiac Risk Estimate 4.7 RATIO (4.0-6.7); Cholesterol 206 mg/dL (132-200); HDL Cholesterol 44 mg/dL (40-60); LDL Cholesterol,Calculated 134 mg/dL (0-130); Triglycerides 139 mg/dL (30-150)
[2024-12-27 12:44] LABS: Ferritin 61 ng/mL (10.5-307.3); Iron 75 mcg/dL (65-175); Percent Iron Saturation 25 % (20-55); Prostate Specific Antigen 0.74 ng/mL (0-4.00); Total Iron Binding Capacity 299 mcg/dL (250-425); Unsaturated Iron Binding 224 (225-295)
== END | disposition home or self-care (01) ==
LOC: COPL 09:19
PROVIDERS: PCP Family Medicine; Referring Provider Psychiatry & Neurology Neurology; Visit Provider Internal Medicine Nephrology
DX: I12.9 Hypertensive chronic kidney disease with stage 1 through stage 4 chronic kidney disease, or unspecified chronic kidney disease (principal); E11.22 Type 2 diabetes mellitus with diabetic chronic kidney disease; N18.9 Chronic kidney disease, unspecified; D63.1 Anemia in chronic kidney disease; E78.5 Hyperlipidemia, unspecified; E55.9 Vitamin D deficiency, unspecified; E21.3 Hyperparathyroidism, unspecified; E03.9 Hypothyroidism, unspecified; M10.30 Gout due to renal impairment, unspecified site; N40.1 Benign prostatic hyperplasia with lower urinary tract symptoms
CPT/HCPCS: 36415; 80053; 80061; 82043; 82306; 82570; 82607; 82728; 82746; 83036; 83540; 83550; 83735; 84153; 84439; 84443; 84550; 85025

== ENCOUNTER → 2025-01-24 | Outpatient (CLI) | payer MEDICARE, MEDICAID, SELFPAY ==
[2025-01-24 11:12] LABS: Basophils # (Auto) 0.1 Thou/mm3 (0.0-0.2); Basophils % (Auto) 1 % (0-2.5); Eosinophils # (Auto) 0.4 Thou/mm3 (0.0-0.5); Eosinophils % (Auto) 5 % (0-10); Hematocrit 50.0 % (41.0-53.0); Hemoglobin 16.5 g/dL (13.5-16.0); Immature Granulocytes Auto 0.01 Thou/mm3 (0.00-0.00); Lymphocytes # (Auto) 1.8 Thou/mm3 (1.0-4.8); Lymphocytes % (Auto) 24 % (10-50); Mean Corpuscular HGB Conc 33.0 g/dl (31.0-37.0); Mean Corpuscular Hemoglobin 30.6 pg (25.0-35.0); Mean Corpuscular Volume 93 fL (80-100); Monocytes # (Auto) 0.7 Thou/mm3 (0.0-0.8); Monocytes % (Auto) 9 % (0-12); Neutrophils # (Auto) 4.5 Thou/mm3 (1.8-7.7); Neutrophils % (Auto) 60 % (37-80); Nucleated Red Blood Cell # 0.00 Thou/mm3 (0.00-0.00); Nucleated Red Blood Cell % 0 /100 WBC (0); Platelet Count 270 Thou/mm3 (140-440); RDW Standard Deviation 46.1 fL (35.1-43.9); Red Blood Count 5.40 Miln/mm3 (4.50-5.90); White Blood Count 7.5 Thou/mm3 (3.8-10.6)
[2025-01-24 12:05] LABS: Alanine Aminotransferase 43 U/L (10-49); Albumin, Serum 4.6 gm/dL (3.4-4.8); Alkaline Phosphatase 83 U/L (46-116); Anion Gap 8 (7-16); Aspartate Amino Transferase 28 U/L (0-34); BUN/Creatinine Ratio 22 Ratio (12-20); Bilirubin,Total 0.5 mg/dL (0.3-1.2); Blood Urea Nitrogen 39 mg/dL (9-23); Calcium 9.3 mg/dL (8.3-10.6); Calcium (Corrected) 9.3 mg/dL (8.5-10.1); Carbon Dioxide 27.8 mMol/L (20.0-31.0); Chloride 95 mMol/L (98-107); Creatinine (Component) 1.8 mg/dL (0.6-1.3); Glucose 345 mg/dL (74-106); Osmolality,Calculated 286 (275-295); Potassium 4.8 mMol/L (3.4-5.1); Sodium 131 mMol/L (136-145); eGFR 40 See Note
[2025-01-24 12:55] LABS: Albumin/Globulin Ratio 1.4 (1.2-2.2); Globulin 3.4 gm/dL (2.3-3.5); Total Protein 8.0 gm/dL (5.7-8.2)
== END | disposition home or self-care (01) ==
LOC: COPL 09:36
PROVIDERS: PCP Family Medicine; Referring Provider Internal Medicine Nephrology; Visit Provider Internal Medicine Nephrology
DX: I12.9 Hypertensive chronic kidney disease with stage 1 through stage 4 chronic kidney disease, or unspecified chronic kidney disease (principal); E11.22 Type 2 diabetes mellitus with diabetic chronic kidney disease; N18.9 Chronic kidney disease, unspecified; D75.1 Secondary polycythemia; E78.5 Hyperlipidemia, unspecified
CPT/HCPCS: 36415; 80053; 85025

== ENCOUNTER → 2025-02-22 | Outpatient (CLI) | payer MEDICARE, MEDICAID, SELFPAY ==
[2025-02-22 11:05] LABS: Basophils # (Auto) 0.0 Thou/mm3 (0.0-0.2); Basophils % (Auto) 0 % (0-2.5); Eosinophils # (Auto) 1.4 Thou/mm3 (0.0-0.5); Eosinophils % (Auto) 19 % (0-10); Hematocrit 50.3 % (41.0-53.0); Hemoglobin 16.7 g/dL (13.5-16.0); Immature Granulocytes Auto 0.01 Thou/mm3 (0.00-0.00); Lymphocytes # (Auto) 2.0 Thou/mm3 (1.0-4.8); Lymphocytes % (Auto) 27 % (10-50); Mean Corpuscular HGB Conc 33.2 g/dl (31.0-37.0); Mean Corpuscular Hemoglobin 31.1 pg (25.0-35.0); Mean Corpuscular Volume 94 fL (80-100); Monocytes # (Auto) 0.6 Thou/mm3 (0.0-0.8); Monocytes % (Auto) 7 % (0-12); Neutrophils # (Auto) 3.5 Thou/mm3 (1.8-7.7); Neutrophils % (Auto) 47 % (37-80); Nucleated Red Blood Cell # 0.00 Thou/mm3 (0.00-0.00); Nucleated Red Blood Cell % 0 /100 WBC (0); Platelet Count 275 Thou/mm3 (140-440); RDW Standard Deviation 47.8 fL (35.1-43.9); Red Blood Count 5.37 Miln/mm3 (4.50-5.90); White Blood Count 7.6 Thou/mm3 (3.8-10.6)
[2025-02-22 11:33] LABS: Glucose Estimated Average 289 mg/dL (80-131); Hemoglobin A1C 11.7 % Hgb (4.8-6.0)
[2025-02-22 11:35] LABS: Alanine Aminotransferase 24 U/L (10-49); Albumin, Serum 4.7 gm/dL (3.4-4.8); Albumin/Globulin Ratio 1.4 (1.2-2.2); Alkaline Phosphatase 104 U/L (46-116); Anion Gap 10 (7-16); Aspartate Amino Transferase 19 U/L (0-34); BUN/Creatinine Ratio 21 Ratio (12-20); Bilirubin,Total 0.7 mg/dL (0.3-1.2); Blood Urea Nitrogen 41 mg/dL (9-23); Calcium 9.5 mg/dL (8.3-10.6); Calcium (Corrected) 9.5 mg/dL (8.5-10.1); Carbon Dioxide 30.6 mMol/L (20.0-31.0); Cardiac Risk Estimate 3.2 RATIO (4.0-6.7); Chloride 97 mMol/L (98-107); Cholesterol 145 mg/dL (132-200); Creatinine (Component) 2.0 mg/dL (0.6-1.3); Globulin 3.3 gm/dL (2.3-3.5); Glucose 256 mg/dL (74-106); HDL Cholesterol 46 mg/dL (40-60); LDL Cholesterol,Calculated 74 mg/dL (0-130); Osmolality,Calculated 294 (275-295); Potassium 5.1 mMol/L (3.4-5.1); Sodium 138 mMol/L (136-145); Total Protein 8.0 gm/dL (5.7-8.2); Triglycerides 126 mg/dL (30-150); eGFR 35 See Note
[2025-02-22 11:51] LABS: Creatinine MALB Rnd Ur 42 mg/dL (30-125); Microalbumin Creat Ratio 112 mg/gCrea (<30); Microalbumin, Random Urine 47 mg/L (0-300)
== END | disposition home or self-care (01) ==
LOC: COPL 09:57
PROVIDERS: PCP Family Medicine; Referring Provider Internal Medicine Nephrology; Visit Provider Internal Medicine Nephrology
DX: I12.9 Hypertensive chronic kidney disease with stage 1 through stage 4 chronic kidney disease, or unspecified chronic kidney disease (principal); E11.22 Type 2 diabetes mellitus with diabetic chronic kidney disease; N18.9 Chronic kidney disease, unspecified; E78.5 Hyperlipidemia, unspecified
CPT/HCPCS: 36415; 80053; 80061; 82043; 82570; 83036; 85025